=== PATIENT | female | born 1950 | race Caucasian/White ===

== ENCOUNTER 2019-05-16 10:56 | Outpatient (CLI) | payer MEDICARE, SELFPAY ==
--- NOTE | ~2019-05-16 | MR_ITS ---
EXAMINATION: MRA brain wo con DATE: 05/16/2019 11:50 INDICATION: Adult polycystic kidney disease. Frontal headaches. TECHNIQUE: Magnetic resonance imaging (MRI) of the brain and brainstem was performed without intraven ous contrast. Sequences included sagittal and axial T1-weighted SE, axial diffusion-weighted FS SE, a xial T2*-weighted GRE, axial T2-weighted FLAIR Propeller, and axial T2-weighted Propeller. Apparent d iffusion coefficient (ADC) maps were created. COMPARISON: None. FINDINGS: There is a dominant left vertebral artery. The posterior, middle and anterior cerebral cecilio ken are symmetric without evidence for significant stenosis or aneurysm. There is right sphenoid sin usitis. No ventriculomegaly or midline shift. IMPRESSION: 1. No significant intracranial vascular abnormality. No evidence for aneurysm. Reviewed, dictated and finalized at location A. TIVE ASSISTANT
== END 2019-05-16 10:57 | disposition home or self-care (01) ==
PROVIDERS: Visit Provider Internal Medicine Nephrology
DX: Q61.2 Polycystic kidney, adult type (principal); R51 Headache
CPT/HCPCS: 70544

== ENCOUNTER 2019-08-04 12:08 | Emergency (ER) | payer MEDICARE, SELFPAY ==
--- NOTE | ~2019-08-04 | CT_ITS ---
EXAMINATION: CT brain wo con DATE: 08/04/2019 13:53 INDICATION: Headache. TECHNIQUE: Computed tomography (CT) of the head was performed without intravenous contrast. The mA wa s adjusted according to patient size. Iterative reconstruction technique was employed. The dose-lengt h product was 605.33 mGy-cm. COMPARISON: Head CT 06/24/2015 FINDINGS: There are scattered areas of low attenuation in the cerebral white matter. There is no intr acranial hemorrhage, acute infarction, or abnormal intracranial mass lesion. The ventricles are haley l in size. There is mucosal thickening in right sphenoid sinus with thickening and sclerosis of the s inus lewis, consistent with chronic sinusitis. There are likely changes of ocular lens replacement geiger rgeries. The mastoid air cells are normal. IMPRESSION: 1. Stable moderate nonspecific cerebral white matter disease, which likely represents chronic small v essel ischemic disease. 2. Chronic sinusitis. Reviewed, dictated and finalized at location A. IMPRESSION: 1. Stable moderate nonspecific cerebral white matter disease, which likely repr esents chronic small vessel ischemic disease. 2. Chronic sinusitis.
--- NOTE | ~2019-08-04 | XR_ITS ---
EXAMINATION: XR chest 2V DATE: 08/04/2019 12:43 INDICATION: Hypertension. TECHNIQUE: Frontal and lateral views of the chest were obtained. COMPARISON: Chest 2 views 02/21/2016, CT abdomen and pelvis 09/24/2018 FINDINGS: There is mild atelectasis in the lower lung zones. No pleural effusion or pneumothorax. The heart size is normal. Surgical clips in the right upper quadrant are likely from cholecystectomy. IMPRESSION: 1. Mild atelectasis in the lower lung zones. Reviewed, dictated and finalized at location A.
[2019-08-04 12:14] VITALS: BP 192/101; PULSE 63; RESP 20; TEMP 36.7; O2SAT 97
--- NOTE | 2019-08-04 12:23 | ECG_ITS ---
Measurements Intervals [place] Rate: 60 P: 45 MI: 189 QRS: -32 QRSD: 97 T: 52 QT: 453 QTc: 453 Interpretive Statements SINUS RHYTHM LEFT AXIS DEVIATION POOR R WAVE PROGRESSION, ANTERIOR LEADS BORDERLINE T WAVE ABNORMALITY- DIFFUSE LEADS BASELINE ARTIFACT- I, II, AVR, AVL, AVF ABNORMAL ECG Electronically Signed On 08-04-2019 14:27:39 CDT by Ross Villalta D.O.
[2019-08-04 12:34] LABS: Hematocrit 43.7 % (37.0-47.0); Hemoglobin 14.5 g/dL (12.0-15.0); Lymphocytes Absolute Auto 1.19 K/mm3 (0.9-3.2); Lymphocytes Percent Auto 40.6 % (18.3-44.2); Mean Corpuscular HGB Conc 33.2 g/dl (32-36); Mean Corpuscular Hemoglobin 29.5 pg (26-34); Mean Platelet Volume 10.7 fl (7.4-10.4); Monocytes Absolute Auto 0.4 K/mm3 (0.1-0.6); Monocytes Percent Auto 12.3 % (2.6-8.5); Neutrophils Absolute Auto 1.4 K/mm3 (1.3-6.7); Neutrophils Percent Auto 46.1 % (45.5-73.1); Platelet Count Result 238 k/mm3 (150-375); Red Blood Count 4.91 M/mm3 (4.2-5.4); White Blood Count 2.9 K/mm3 (4.5-10.0)
[2019-08-04 12:43] LABS: INR 0.8; Prothrombin Time 11.2 Seconds (11.1-14.7)
[2019-08-04 12:44] LABS: Partial Thromboplastin Time 30.8 SECONDS (22.3-36.8)
[2019-08-04 12:45] LABS: Blood Urea Nitrogen 23 mg/dL (7-17); Calcium 8.7 mg/dL (8.4-10.2); Carbon Dioxide 27 mmol/L (22-30); Chloride 109 mmol/L (98-107); Estimated Glomerular Filt Rate 30; Glucose 90 mg/dL (65-105); Sodium 141 mmol/L (137-145)
[2019-08-04 12:56] VITALS: BP 159/76; PULSE 60; RESP 20; O2SAT 99
[2019-08-04 12:59] LABS: Troponin I < 0.012 ng/mL (0.000-0.034)
[2019-08-04 14:31] VITALS: BP 173/89; PULSE 58; RESP 20; O2SAT 97
--- NOTE | 2019-08-04 14:47 | ED.RECABL ---
HPI - Recheck/Abnormal Lab/Rx General Chief Complaint: Recheck/Abnormal Lab/Rx <Helene Dimas PA-C - Last Filed: 08/04/19 14:59> Stated Complaint: ELEVATED BP <Helene Dimas PA-C - Last Filed: 08/04/19 14:59> Time Seen by Provider: 08/04/19 13:07 <VENESSA Elise Last Filed: 08/04/19 14:59> Source: patient <VENESSA Elise Last Filed: 08/04/19 14:59> Mode of arrival: ambulatory <VENESSA Elise Last Filed: 08/04/19 14:59> Limitations: no limitations <Helene Dimas PA-C - Last Filed: 08/04/19 14:59> History of Present Illness HPI narrative: This is a 68 year old female that presents to the ER for elevated blood pressure x 2 weeks. Reports she has been trying to get her blood pressure under control through her usps letter carrier who had been adjusting her hypertension medications. Reports she has been getting headaches intermittently over the last couple of days. Also reports yesterday that she had some chest tightness while laying down that lasted briefly and resolved on its own. Currently denies any chest pain. Denies fever, shortness of breath, vision changes, vomiting, numbness or weakness. <Helene Dimas PA-C - Last Filed: 08/04/19 14:59> Related Data Home Medications: Home Medications Medication Instructions Recorded Confirmed allopurinol 08/04/19 08/04/19 escitalopram oxalate mg 08/04/19 hydralazine 08/04/19 hydrochlorothiazide 08/04/19 irbesartan mg 08/04/19 losartan 08/04/19 08/04/19 potassium chloride [Klor-Con M20] meq PO 08/04/19 tolvaptan [Jynarque] ea 08/04/19 <VENESSA Elise Last Filed: 08/04/19 14:59> Allergies/Adverse Reactions: Allergies Allergy/AdvReac Type Severity Reaction Status Date / Time quinidine Allergy Severe QUINAGLUTE Verified 08/04/19 12:25 FORTE CAUSED SEVERE RASH MEPERIDINE HCL AdvReac Intermediate DIAPHORESIS, Uncoded 08/04/19 12:25 DIZZY, <Helene Dimas PA-C - Last Filed: 08/04/19 14:59> Review of Systems Review of Systems: Narrative: CONSTITUTIONAL: Denies fever CARDIOVASCULAR: Denies chest pain RESPIRATORY: Denies dyspnea. GASTROINTESTINAL: Denies vomiting NEUROLOGIC: Reports headache. Denies numbness, or weakness. <Helene Dimas PA-C - Last Filed: 08/04/19 14:59> All systems reviewed & are unremarkable except as noted in HPI and below <Helene Dimas PA-C - Last Filed: 08/04/19 14:59> PMFSH Past Medical History Medical History: Medical History (Updated 08/04/19 @ 14:59 by Helene Dimas PA-C) History of hypertension History of polycystic kidney disease <Helene Dimas PA-C - Last Filed: 08/04/19 14:59> Surgical History Surgical History: Surgical History (Updated 08/04/19 @ 14:53 by Helene Dimas PA-C) History of appendectomy History of cholecystectomy History of hysterectomy History of tonsillectomy <Helene Dimas PA-C - Last Filed: 08/04/19 14:59> Exam Narrative: Exam Narrative: GENERAL: Well-appearing, well-nourished, and in no acute distress. HEAD: Normocephalic, atraumatic. EYES: PERRLA and EOMI. ENT: Nares clear, no rhinorrhea or epistaxis. Mucous membranes moist. Oropharynx without tonsillar hypertrophy exudate or other lesions. Bilateral TMs pearly frausto non-bulging NECK: Supple. No adenopathy or masses. No carotid bruits or JVD CHEST: Clear to auscultation. No respiratory distress. No wheezes rales or rhonchi HEART: Regular rate and rhythm. No murmur heard. Normal peripheral pulses. EXTREMITIES: Normal range of motion. No edema. Strength equal in bilateral upper and lower extremities. Normal [id number] SKIN: Warm, dry, no rash. NEURO: No focal deficits. Alert and oriented x3. Cranial nerves II through XII grossly intact. Normal gait PSYCH: Normal mood and affect <Helene Dimas PA-C - Last Filed: 08/04/19 14:59> Course Vital Signs Vital signs: Vital Signs Temperature 98.0 F
[2019-08-04 15:05] VITALS: BP 176/83; PULSE 58; RESP 20; TEMP 36.7; O2SAT 98
== END 2019-08-04 15:07 | disposition home or self-care (01) ==
PROVIDERS: Emergency Provider Emergency Medicine; PCP Family Medicine
DX: I15.1 Hypertension secondary to other renal disorders (principal); R51 Headache; Q61.3 Polycystic kidney, unspecified; R90.82 White matter disease, unspecified; R94.31 Abnormal electrocardiogram [ECG] [EKG]
CPT/HCPCS: 36415; 70450; 71046; 80048; 84484; 85025; 85610; 85730; 93005; 96374; 99284; J0131

== ENCOUNTER 2019-08-05 19:03 | Emergency (ER) | payer MEDICARE, SELFPAY ==
[2019-08-05 19:10] VITALS: BP 195/87; PULSE 68; RESP 17; TEMP 36.7; O2SAT 96
[2019-08-05 19:18] VITALS: RESP 15; O2SAT 97
[2019-08-05 19:22] VITALS: BP 169/85; PULSE 63; RESP 13; O2SAT 99
--- NOTE | 2019-08-05 19:45 | ECG_ITS ---
Measurements Intervals [place] Rate: 63 P: 42 [place]: 182 QRS: -34 QRSD: 96 T: 21 QT: 436 QTc: 450 Interpretive Statements SINUS RHYTHM LEFT AXIS DEVIATION BORDERLINE R WAVE PROGRESSION, ANTERIOR LEADS BASELINE WANDER- I, II, AVR, AVL, AVF, V1-V3 BORDERLINE ECG Electronically Signed On 08-05-2019 19:48:05 CDT by Ross Villalta D.O.
--- NOTE | 2019-08-05 19:58 | ED.RECABL ---
HPI - Recheck/Abnormal Lab/Rx General Chief Complaint: Recheck/Abnormal Lab/Rx Stated Complaint: syncope Time Seen by Provider: 08/05/19 19:47 History of Present Illness HPI narrative: Patient presents with her for having passed out at home tonight. She was getting up from the bed when she felt lightheaded and slipped down onto her left knee and left shoulder. She was unconscious for a very short period of time. Her found her, and checked her pressure which was like 229/110. She is on a new experimental drug for her polycystic kidneys, and had to come off of her diltiazem. Metoprolol did not work, Dr. Melton added hydralazine and hydrochlorothiazide. She does not smoke drink or do drugs. She has not been sick in the last couple weeks. She does have intermittent nausea. She makes more urine than ever on the new experimental drug. She has mild pain in her left knee and left shoulder but is not concerned. She wants a full liver panel and does not want the CAT scan of the chest x-ray because she had those last night. Initial visit (ago): hour(s) Related Data Home Medications Medication Instructions Recorded Confirmed allopurinol 08/04/19 08/04/19 escitalopram oxalate mg 08/04/19 hydralazine 08/04/19 hydrochlorothiazide 08/04/19 irbesartan mg 08/04/19 losartan 08/04/19 08/04/19 potassium chloride [Klor-Con M20] meq PO 08/04/19 tolvaptan [Jynarque] ea 08/04/19 Allergies Allergy/AdvReac Type Severity Reaction Status Date / Time quinidine Allergy Severe QUINAGLUTE Verified 08/04/19 12:25 FORTE CAUSED SEVERE RASH MEPERIDINE HCL AdvReac Intermediate DIAPHORESIS, Uncoded 08/04/19 12:25 DIZZY, Review of Systems Review of Systems: Narrative: CONSTITUTIONAL: Denies fever, chills, or sweats. EYES: Denies visual changes, redness, or discharge. ENT: Denies rhinorrhea, congestion, sore throat, or otalgia. CARDIOVASCULAR: Denies chest pain, palpitations, or edema. She did get dizzy and faint. RESPIRATORY: Denies cough or dyspnea. GASTROINTESTINAL: Denies abdominal pain, nausea, vomiting, or diarrhea. GENITOURINARY: Denies dysuria or hematuria. SKIN: Denies rash or itching. MUSCULOSKELETAL: Denies back pain, joint pain, or myalgia. NEUROLOGIC: Denies headache, numbness, or weakness. PSYCHIATRIC: Denies anxiety or depression. [facility] Past Medical History Medical History History of hypertension History of polycystic kidney disease Surgical History Surgical History History of appendectomy History of cholecystectomy History of hysterectomy History of tonsillectomy Social History Social History (Updated 08/05/19 @ 20:01 by Sintia Prabhakar MD) Smoking status: Never smoker Alcohol intake: never Substance use: never Exam Narrative: Exam Narrative: GENERAL: Well-appearing, well-nourished, and in no acute distress.Overweight HEAD: Normocephalic, atraumatic. EYES: PERRLA and EOMI. ENT: Nares clear, no rhinorrhea or epistaxis. Mucous membranes moist. NECK: Supple. CHEST: Clear to auscultation. No respiratory distress. HEART: Regular rate and rhythm. No murmur heard. Normal peripheral pulses. ABDOMEN: Soft, nontender, nondistended, normal active bowel sounds. EXTREMITIES: Normal range of motion. Mild edema. No bruises or deformity left shoulder and left knee. SKIN: Warm, dry, no rash. NEURO: No focal deficits. Alert and oriented x3. PSYCH: Flat affect and worried. Course Reevaluation(s) Reevaluation #1: Told the patient and her about the lab results. She is very worried and does not want to have the swings in her blood pressure. I will call her shopping investigator to get advice. Date: 08/05/19 Time: 22:17 Consultations Consultation #1: Called the on-call shopping investigator at [phone], to get advice about Mrs. Sanchez's blood pressure. Dr. Esteban recommends that she call Dr. Rajan
[2019-08-05 20:09] LABS: Basophils Percent Auto 1.4 % (0.2-1.2); Hematocrit 41.5 % (37.0-47.0); Hemoglobin 13.5 g/dL (12.0-15.0); Immature Granulocyte Absolute 0.01 K/mm3 (0.00-0.031); Immature Granulocyte Percent A 0.4 % (0-0.5); Lymphocytes Absolute Auto 1.35 K/mm3 (0.9-3.2); Lymphocytes Percent Auto 47.7 % (18.3-44.2); Mean Corpuscular HGB Conc 32.5 g/dl (32-36); Mean Corpuscular Hemoglobin 28.8 pg (26-34); Mean Corpuscular Volume 88.5 fl (80-100); Mean Platelet Volume 10.4 fl (7.4-10.4); Monocytes Absolute Auto 0.4 K/mm3 (0.1-0.6); Monocytes Percent Auto 12.7 % (2.6-8.5); Neutrophils Absolute Auto 1.1 K/mm3 (1.3-6.7); Neutrophils Percent Auto 37.8 % (45.5-73.1); Platelet Count Result 209 k/mm3 (150-375); Red Blood Count 4.69 M/mm3 (4.2-5.4); Red Cell Distribution Width 14.9 % (11.5-14.5); White Blood Count 2.8 K/mm3 (4.5-10.0)
[2019-08-05 20:20] LABS: Ethanol < 10 mg/dL (<10)
[2019-08-05 20:22] LABS: Alanine Aminotransferase 13 U/L (4-35); Albumin Level 3.7 g/dL (3.5-5.1); Alkaline Phosphatase 87 U/L (38-126); Aspartate Amino Transferase 24 U/L (14-36); Bilirubin,Total 0.4 mg/dL (0.2-1.3); Blood Urea Nitrogen 22 mg/dL (7-17); Calcium 8.6 mg/dL (8.4-10.2); Carbon Dioxide 27 mmol/L (22-30); Chloride 107 mmol/L (98-107); Estimated CRCL calculation 26 ml/min; Estimated Glomerular Filt Rate 26; Glucose 89 mg/dL (65-105); Sodium 139 mmol/L (137-145)
[2019-08-05 20:28] VITALS: BP 161/92; PULSE 76; RESP 11; O2SAT 99
[2019-08-05 20:30] LABS: Add Urine Microscopic? YES; Appearance Urine Clear (Clear); Bacteria Urine Trace /hpf; Bilirubin Urine Negative (Negative); Blood Urine Negative (Negative); Color Urine Straw (Yellow); Glucose Urine UA Negative (Negative); Ketones Urine Negative (Negative); Leukocyte Esterase Ur Trace LEU/UL (Negative); Nitrate Urine Negative (Negative); Protein Urine 2+ mg/dL (Negative); Squamous Epithelial Cell Urine Many /hpf (Few); Urobilinogen Urine Negative mg/dL (<2.0)
[2019-08-05 20:33] LABS: NT Pro B Type Natriuretic Pept 527 PG/ML (5-100); Troponin I < 0.012 ng/mL (0.000-0.034)
[2019-08-05 21:09] VITALS: BP 155/99; PULSE 75; RESP 15; O2SAT 100
[2019-08-05 22:47] VITALS: BP 149/82; PULSE 70; RESP 16; TEMP 36.5; O2SAT 99
== END 2019-08-05 22:55 | disposition home or self-care (01) ==
PROVIDERS: Emergency Provider Emergency Medicine; PCP Family Medicine
DX: R55 Syncope and collapse (principal); I11.0 Hypertensive heart disease with heart failure; Q61.3 Polycystic kidney, unspecified; I50.9 Heart failure, unspecified; D72.819 Decreased white blood cell count, unspecified; R94.31 Abnormal electrocardiogram [ECG] [EKG]
CPT/HCPCS: 36415; 80053; 80307; 81001; 83880; 84484; 85025; 93005; 99284

== ENCOUNTER 2020-06-01 16:05 | Emergency (ER) | payer MEDICARE, SELFPAY ==
--- NOTE | ~2020-06-01 | XR_ITS ---
EXAMINATION: XR chest 2V 06/01/2020 16:56 INDICATION: Mediastinal chest pain. Hypertension. PROCEDURE: 2 view chest COMPARISON: Comparison to multiple prior studies sequentially, with oldest reviewed study dated 11/18. FINDINGS: There is left basilar atelectasis. No focal pneumonia or edema. The cardiomediastinal silho uette is within normal limits. There are no pleural effusions. There is no pneumothorax suspected. IMPRESSION: 1: Left basilar atelectasis. Reviewed, dictated and finalized at location A. R UN[employer] BUSINESS REPRESENTATIVE
[2020-06-01 16:13] VITALS: BP 165/86; PULSE 59; RESP 14; TEMP 36.9; O2SAT 99
--- NOTE | 2020-06-01 16:13 | ECG_ITS ---
Measurements Intervals [place] Rate: 58 P: 17 ND: 203 QRS: -31 QRSD: 94 T: 16 QT: 445 QTc: 440 Interpretive Statements SINUS BRADYCARDIA ATRIAL PREMATURE COMPLEX LEFT AXIS DEVIATION BORDERLINE AV CONDUCTION DELAY POOR R WAVE PROGRESSION, ANTERIOR LEADS BORDERLINE T WAVE ABNORMALITY- ANT/INF LEADS BORDERLINE ECG Electronically Signed On 06-01-2020 18:14:34 DIE TROUBLE SHOOTER by Ross Villalta D.O.
[2020-06-01 16:28] LABS: Basophils Absolute Auto 0.1 K/mm3 (0.0-0.1); Eosinophils Absolute Auto 0.3 K/mm3 (0-0.3); Eosinophils Percent Auto 4.7 % (0-4.4); Hematocrit 39.6 % (37.0-47.0); Hemoglobin 12.8 g/dL (12.0-15.0); Immature Granulocyte Absolute 0.01 K/mm3 (0.00-0.031); Immature Granulocyte Percent A 0.2 % (0-0.5); Lymphocytes Percent Auto 28.7 % (18.3-44.2); Mean Corpuscular HGB Conc 32.3 g/dl (32-36); Mean Corpuscular Hemoglobin 29.2 pg (26-34); Mean Corpuscular Volume 90.4 fl (80-100); Mean Platelet Volume 10.6 fl (7.4-10.4); Monocytes Absolute Auto 0.5 K/mm3 (0.1-0.6); Monocytes Percent Auto 7.9 % (2.6-8.5); Neutrophils Absolute Auto 3.4 K/mm3 (1.3-6.7); Neutrophils Percent Auto 57.5 % (45.5-73.1); Platelet Count Result 193 k/mm3 (150-375); Red Blood Count 4.38 M/mm3 (4.2-5.4); Red Cell Distribution Width 14.8 % (11.5-14.5); White Blood Count 5.9 K/mm3 (4.5-10.0)
[2020-06-01 16:40] LABS: Anion Gap 8 mmol/L (8-16); Blood Urea Nitrogen 36 mg/dL (7-17); Calcium 8.7 mg/dL (8.4-10.2); Carbon Dioxide 27 mmol/L (22-30); Chloride 106 mmol/L (98-107); Estimated CRCL calculation 23 ml/min; Estimated Glomerular Filt Rate 26; Glucose 73 mg/dL (65-105); Potassium 3.8 mmol/L (3.4-5.0); Sodium 141 mmol/L (137-145)
[2020-06-01 16:41] LABS: INR 0.9; Prothrombin Time 12.6 Seconds (11.1-14.7)
[2020-06-01 16:42] LABS: Partial Thromboplastin Time 27.7 SECONDS (22.3-36.8)
[2020-06-01 16:52] LABS: Troponin I < 0.012 ng/mL (0.000-0.034)
--- NOTE | 2020-06-01 17:13 | ED.CHESTPAIN ---
HPI - Chest Pain General Chief Complaint: Chest Pain Stated Complaint: chest pain Time Seen by Provider: 06/01/20 16:15 History of Present Illness HPI narrative: Patient is a 69-year-old female who presents ER with some concerns for chest pain. Reports over the last 3 days she been having some burning discomfort in her throat and upper chest. No radiation. Today she started having some aching in her left arm which made her decide she should come in. Aching in the arm began this morning around 11 AM. No exertional chest pain or worsening of her symptoms. No nausea/vomiting/dizziness/shortness of breath. No previous history of ME. She does have history of polycystic kidney disease. She reports significant family history for Stark's esophagus and a sister and another family member who had esophageal cancer. Related Data Home Medications Medication Instructions Recorded Confirmed allopurinol 08/04/19 08/04/19 hydralazine 08/04/19 hydrochlorothiazide 08/04/19 irbesartan mg 08/04/19 tolvaptan (polycys kidney dis) ea 08/04/19 [Jynarque] aspirin [Baby Aspirin] 81 mg PO DAILY 06/01/20 Allergies Allergy/AdvReac Type Severity Reaction Status Date / Time quinidine Allergy Severe QUINAGLUTE Verified 08/04/19 12:25 FORTE CAUSED SEVERE RASH MEPERIDINE HCL AdvReac Intermediate DIAPHORESIS, Uncoded 08/04/19 12:25 DIZZY, Review of Systems Review of Systems: All systems reviewed & are unremarkable except as noted in HPI and below Constitutional: Constitutional: Denies chills, Denies fever(s) and Denies weakness ENT: Denies nasal congestion and Denies sore throat Cardiovascular: Cardiovascular: Reports chest pain, Denies rapid heart rate and Denies radiating jaw, neck or arm pain Respiratory: Respiratory: Denies cough, Denies dyspnea and Denies wheezing Gastrointestinal: Gastrointestinal: Denies abdominal pain, Reports heartburn, Denies diarrhea, Denies nausea and Denies vomiting PMF Past Medical History Medical History (Updated 06/01/20 @ 18:39 by Donte Valentin MD) History of hypertension History of polycystic kidney disease Surgical History Surgical History History of appendectomy History of cholecystectomy History of hysterectomy History of tonsillectomy Social History Social History (Updated 08/05/19 @ 20:01 by Sintia Prabhakar MD) Smoking status: Never smoker Alcohol intake: never Substance use: never Exam Narrative: Exam Narrative: GENERAL: Well-appearing, well-nourished, and in no acute distress. HEAD: Normocephalic, atraumatic. CHEST: Clear to auscultation. No respiratory distress. HEART: Regular rate and rhythm. Normal peripheral pulses. ABDOMEN: Soft, nontender, nondistended. Back: Midline tenderness of thoracic lumbar spine but there is left-sided paraspinal tenderness at the rhomboid. EXTREMITIES: Normal range of motion. No edema. SKIN: Warm, dry, no rash. NEURO: Alert and oriented x3. PSYCH: Normal mood and affect. Course Course Emergency Course: Will place patient on Protonix to help with potential reflux. Troponin negative despite 3 days of discomfort. Patient has reproducible pain around the left shoulder that could be causing the discomfort in the arm. Recommend close follow-up with her PCP. Significant family history of esophageal issues patient may be experiencing the same. Patient was able to tolerate a small amount of GI cocktail before vomiting and reports it did help the discomfort in her throat. Patient reports she vomited because she has an issue with textures and cannot even drink milkshakes and not because she has an inability to swallow. Vital Signs Vital signs: Vital Signs Temperature 98.4 F 06/01/20 16:13 Pulse Rate 59 L 06/01/20 16:13 Respiratory Rate 14 06/01/20 16:13 Blood Pressure 165/86 H 06/01/20 16:13 Pulse Oximetry 99 06/01/20 16:13 Temperature
[2020-06-01] MEDS: BELLADONNA ALK/PHENOB ELIX 10 ML, MAG HYDROX/ALUMINUM HYD/SIMETH 30 ML, LIDOCAINE HCL 2... PO (18:04)
[2020-06-01 18:28] VITALS: BP 142/73; PULSE 60; RESP 15; O2SAT 98
== END 2020-06-01 18:59 | disposition home or self-care (01) ==
PROVIDERS: Emergency Medicine; Emergency Provider Emergency Medicine; PCP Family Medicine
DX: K21.9 Gastro-esophageal reflux disease without esophagitis (principal); M54.9 Dorsalgia, unspecified; R00.1 Bradycardia, unspecified; I10 Essential (primary) hypertension; Q61.3 Polycystic kidney, unspecified
CPT/HCPCS: 36415; 71046; 80048; 84484; 85025; 85610; 85730; 93005; 99284; A9270

== ENCOUNTER → 2020-06-25 05:35 | Outpatient (CLI) | payer MEDICARE, SELFPAY ==
[2020-06-25 19:34] LABS: SARS-CoV-2 RNA PCR Negative
== END ==
PROVIDERS: PCP Family Medicine; Visit Provider Internal Medicine Gastroenterology
DX: Z01.812 Encounter for preprocedural laboratory examination (principal); Z20.822 Contact with and (suspected) exposure to COVID-19
CPT/HCPCS: C9803; U0003; U0005

== ENCOUNTER 2020-06-29 01:05 | Day surgery (SDC) | payer MEDICARE, SELFPAY ==
[2020-06-16 12:08] VITALS: BMI 29.0
[2020-06-29 07:35] VITALS: BP 140/69; PULSE 57; RESP 16; TEMP 36.3; O2SAT 100; BMI 29.2
[2020-06-29] MEDS: LACTATED RINGERS 1,000 ML 150 ML IV CONT (07:51)
--- NOTE | 2020-06-29 07:56 | WPDANESEPPF ---
Anes - Initial Pre Proc Eval Procedure: Operation Date: 06/29/20 08:30 Proposed Procedures p Esophagogastroduodenoscopy - Adrián Giron MD Date/Time: 06/29/20 07:56 Surgeon: Adrián Giron MD Pre Op Diagnosis: atypical chest pain Patient Data Age: 69 Gender: F Height: 5 ft 2 in Weight: 72.6 kg Last Vital Signs Temp 97.3 F L 06/29/20 07:35 Pulse 57 L 06/29/20 07:35 Resp 16 06/29/20 07:35 BP 140/69 06/29/20 07:35 Pulse Ox 100 06/29/20 07:35 Allergies Allergy/AdvReac Type Severity Reaction Status Date / Time quinidine Allergy Severe QUINAGLUTE Verified 06/29/20 07:34 FORTE CAUSED SEVERE RASH meperidine AdvReac Intermediate Dizziness Verified 06/29/20 07:34 Home Medications Medication Instructions Recorded Confirmed Type allopurinol 300 mg PO DAILY 08/04/19 06/29/20 History hydralazine 10 mg PO BID 08/04/19 06/29/20 History hydrochlorothiazide 12.5 mg PO DAILY 08/04/19 06/29/20 History irbesartan 300 mg PO DAILY 08/04/19 06/29/20 History aspirin [Baby Aspirin] 81 mg PO DAILY 06/01/20 06/29/20 History pantoprazole 40 mg PO BID #28 tablet 06/01/20 06/29/20 Rx escitalopram oxalate 20 mg PO DAILY 06/16/20 06/29/20 History tolvaptan (polycys kidney dis) 1 ea PO DAILY 06/16/20 06/29/20 History [Jynarque] Patient hx anesthesia problems: none Family hx anesthesia problems: none PMFSH Past Medical History Medical History (Updated 06/02/20 @ 00:00 by Background Daidalia) History of hypertension History of polycystic kidney disease Surgical History Surgical History History of appendectomy History of cholecystectomy History of hysterectomy History of tonsillectomy Social History Social History (Updated 08/05/19 @ 20:01 by Sintia Prabhakar MD) Smoking status: Never smoker Alcohol intake: never Substance use: never Substance use type: does not use Living arrangements: with family Spiritual care concerns: No Anes - Eval Final PreProcedure Day of Procedure 06/29/20 07:56 Patient weight: overweight Heart: regular rate and rhythm Lungs: clear to auscultation Airway: Mallampati scale class II Neurological: alert and oriented Last oral intake: >/= 8 hours ASA classification: III Emergent: no Anesthetic plan: proceed Anesthesia type and monitoring: general GIVS and standard monitoring Informed Consent: The patient's anesthetic plan and its attendant risks and benefits were discussed with the patient/family/POA. Questions were solicited and answers provided to the satisfaction of the patient/family/POA.
--- NOTE | 2020-06-29 08:06 | PM.HPGS ---
History of Present Illness History of Present Illness Consent: Risks, benefits, and alternatives have been discussed and questions answered. Patient agrees to proceed with procedure. Chief complaint: atypical chest pain Narrative: Aurora Sanchez is a 69 year old female who has had severe heartburn recently. A few weeks ago she had burning pain in the chest that began at night but lasted for couple of days. Cardiac evaluation in the emergency room was negative. She was started on pantoprazole and has not had any recurrences since. her family history is significant in that an uncle had esophageal cancer and a sister has Stark's esophagus. She denies dysphagia Review of Systems Review of Systems: All systems reviewed & are unremarkable except as noted in HPI and below PMFSH Past Medical History Medical History History of hypertension History of polycystic kidney disease Surgical History Surgical History History of appendectomy History of cholecystectomy History of hysterectomy History of tonsillectomy Social History Social History Smoking status: Never smoker Alcohol intake: never Substance use: never Substance use type: does not use Living arrangements: with family Spiritual care concerns: No Meds Home Medications and Allergies Home Medications Medication Instructions Recorded Confirmed Type allopurinol 300 mg PO DAILY 08/04/19 06/29/20 History hydralazine 10 mg PO BID 08/04/19 06/29/20 History hydrochlorothiazide 12.5 mg PO DAILY 08/04/19 06/29/20 History irbesartan 300 mg PO DAILY 08/04/19 06/29/20 History aspirin [Baby Aspirin] 81 mg PO DAILY 06/01/20 06/29/20 History pantoprazole 40 mg PO BID #28 tablet 06/01/20 06/29/20 Rx escitalopram oxalate 20 mg PO DAILY 06/16/20 06/29/20 History tolvaptan (polycys kidney dis) 1 ea PO DAILY 06/16/20 06/29/20 History [Jynarque] Allergies Allergy/AdvReac Type Severity Reaction Status Date / Time quinidine Allergy Severe QUINAGLUTE Verified 06/29/20 07:34 FORTE CAUSED SEVERE RASH meperidine AdvReac Intermediate Dizziness Verified 06/29/20 07:34 Vital Signs Vital Signs - 24 hr 06/29/20 07:35 Temperature 36.3 C L Pulse Rate 57 L Respiratory Rate 16 Blood Pressure 140/69 Pulse Oximetry 100 Exam Const: General: alert Orientation/consciousness: patient oriented x3 Resp: Auscultation: clear to auscultation bilaterally Cardio: Rhythm: regular rhythm GI: GI Palp: Yes Soft to palpation and No Tenderness to palpation present (GI) Neuro: General: patient oriented x3 Assessment and Plan Assessment and plan (1) GERD (gastroesophageal reflux disease): Code(s): K21.9 - Gastro-esophageal reflux disease without esophagitis Status: Acute Assessment and Plan: EGD with possible biopsy or dilatation or cautery.
[2020-06-29 08:43] VITALS: BP 122/70; PULSE 56; RESP 17; O2SAT 96
[2020-06-29 08:53] VITALS: BP 130/76; PULSE 54; RESP 17; O2SAT 98
[2020-06-29 09:08] VITALS: BP 134/74; PULSE 52; RESP 17; O2SAT 98
== END 2020-06-29 09:19 | disposition home or self-care (01) ==
PROVIDERS: PCP Family Medicine; Visit Provider Internal Medicine Gastroenterology
PROC: 0DJ08ZZ Inspection of Upper Intestinal Tract, Via Natural or Artificial Opening Endoscopic (ICD-10-PCS; CPT 43235; principal; 2020-06-29 08:30)
DX: K21.9 Gastro-esophageal reflux disease without esophagitis (principal); K25.9 Gastric ulcer, unspecified as acute or chronic, without hemorrhage or perforation; K44.9 Diaphragmatic hernia without obstruction or gangrene; R07.89 Other chest pain; I10 Essential (primary) hypertension; Q61.3 Polycystic kidney, unspecified; Z79.82 Long term (current) use of aspirin
CPT/HCPCS: 43239; 87081; 88305; C9803; J2704; J7120; U0003; U0005

== ENCOUNTER 2020-08-18 19:25 | Emergency (ER) | payer MEDICARE, SELFPAY ==
[2020-08-18 19:29] VITALS: BP 121/64; PULSE 66; RESP 18; TEMP 36.4; O2SAT 100
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
[2020-08-18 20:57] LABS: Basophils Percent Auto 0.5 % (0.2-1.2); Eosinophils Absolute Auto 0.1 K/mm3 (0-0.3); Eosinophils Percent Auto 3.1 % (0-4.4); Hematocrit 36.3 % (37.0-47.0); Hemoglobin 11.7 g/dL (12.0-15.0); Lymphocytes Absolute Auto 1.15 K/mm3 (0.9-3.2); Lymphocytes Percent Auto 27.8 % (18.3-44.2); Mean Corpuscular HGB Conc 32.2 g/dl (32-36); Mean Corpuscular Hemoglobin 28.8 pg (26-34); Mean Corpuscular Volume 89.4 fl (80-100); Mean Platelet Volume 10.8 fl (7.4-10.4); Monocytes Absolute Auto 0.7 K/mm3 (0.1-0.6); Monocytes Percent Auto 15.7 % (2.6-8.5); Neutrophils Absolute Auto 2.2 K/mm3 (1.3-6.7); Neutrophils Percent Auto 52.9 % (45.5-73.1); Platelet Count Result 161 k/mm3 (150-375); Red Blood Count 4.06 M/mm3 (4.2-5.4); Red Cell Distribution Width 14.4 % (11.5-14.5); White Blood Count 4.1 K/mm3 (4.5-10.0)
[2020-08-18 21:08] LABS: Acetaminophen < 10 ug/mL (10-30); Alanine Aminotransferase 8 U/L (4-35); Albumin Level 3.3 g/dL (3.5-5.1); Alkaline Phosphatase 64 U/L (38-126); Anion Gap 7 mmol/L (8-16); Aspartate Amino Transferase 21 U/L (14-36); Bilirubin,Total 0.6 mg/dL (0.2-1.3); Blood Urea Nitrogen 40 mg/dL (7-17); Calcium 8.5 mg/dL (8.4-10.2); Carbon Dioxide 27 mmol/L (22-30); Chloride 108 mmol/L (98-107); Estimated Glomerular Filt Rate 21; Ethanol < 10 mg/dL (<10); Glucose 96 mg/dL (65-105); Potassium 3.1 mmol/L (3.4-5.0); Salicylate < 1.0 mg/dL (2-20); Sodium 142 mmol/L (137-145)
--- NOTE | 2020-08-18 21:18 | PC.NURSE ---
per erp dr araujo pt is medically clear
[2020-08-18] MEDS: POTASSIUM CHLORIDE 20 MEQ PACKET (FOR LIQUID) PO (21:21)
--- NOTE | 2020-08-18 21:21 | PC.NURSE ---
This rn spoke with crisis. They will send someone out in the next hour.
[2020-08-18 21:49] LABS: Add Urine Microscopic? YES; Appearance Urine Clear (Clear); Bilirubin Urine Negative (Negative); Blood Urine 1+ (Negative); Color Urine Yellow (Yellow); Glucose Urine UA Negative (Negative); Ketones Urine Negative (Negative); Leukocyte Esterase Ur 3+ LEU/UL (Negative); Mucus Urine Rare /lpf; Nitrate Urine Negative (Negative); Protein Urine 1+ mg/dL (Negative); Specific Grav Ur 1.013 (1.001-1.035); Squamous Epithelial Cell Urine Few /hpf (Few); Transitional Epi Cells Urine Rare /hpf (None Seen); Urobilinogen Urine Negative mg/dL (<2.0); WBC Urine 51-75 /hpf
[2020-08-18 22:04] LABS: Amphetamine Screen Urine Negative (Negative); Barbiturate Screen Urine Negative (Negative); Benzodiazepines Screen Urine Negative (Negative); Cannabinoid Screen Urine Negative (Negative); Cocaine Screen Urine Negative (Negative); Methadone Screen Urine Negative (Negative); Opiate Screen Urine Negative (Negative); Phencyclidine Screen Urine Negative (Negative)
[2020-08-19 00:14] VITALS: BP 124/67; PULSE 64; RESP 16; TEMP 36.3; O2SAT 98
== END 2020-08-19 00:15 | disposition home or self-care (01) ==
PROVIDERS: Emergency Provider Emergency Medicine; PCP Family Medicine
DX: F32.9 Major depressive disorder, single episode, unspecified (principal); E87.6 Hypokalemia; Q61.3 Polycystic kidney, unspecified; I12.9 Hypertensive chronic kidney disease with stage 1 through stage 4 chronic kidney disease, or unspecified chronic kidney disease; N18.9 Chronic kidney disease, unspecified; Z79.82 Long term (current) use of aspirin; Z79.899 Other long term (current) drug therapy
CPT/HCPCS: 36415; 80053; 80307; 81001; 84443; 85025; 87086; 87088; 99284; A9270

== ENCOUNTER 2021-04-20 08:38 | Emergency (ER) | payer MEDICARE, SELFPAY ==
[2021-04-20] VITALS (11 sets, daily range): BP systolic 107–146; BP diastolic 64–75; PULSE 52–58; RESP 14–20; TEMP 36.6; O2SAT 94–96
--- NOTE | ~2021-04-20 | CT_ITS ---
EXAMINATION: CT abdomen pelvis wo con DATE: 04/20/2021 09:33 INDICATION: Right lower quadrant abdominal pain. Polycystic kidney disease. TECHNIQUE: Computed tomography (CT) of the abdomen and pelvis was performed without intravenous contr ast. Automated exposure control and iterative reconstruction technique were employed. The dose-length product was 588.38 mGy-cm. COMPARISON: CT abdomen and pelvis 09/24/2018 FINDINGS: The visualized portions of the lung bases demonstrate mild atelectasis. The heart size is n ormal. There are coronary artery calcifications. There is a small pericardial effusion. There are inn umerable cysts in the liver. There are changes of cholecystectomy. The pancreas and spleen and adrena l glands are normal. There are innumerable cysts in the kidneys measuring up to 9.8 cm on the left. T here are parenchymal calcifications in the kidneys. There are hemorrhagic cysts in the kidneys measur ing up to 2.5 cm on the right. There is a supraumbilical ventral hernia containing fat. There is dive rticulosis of the colon without evidence of diverticulitis. There are no dilated loops of bowel. The appendix is not visualized. There are no pathologically enlarged lymph nodes. There is no free intrap eritoneal fluid. There is mild thoracolumbar spondylosis. IMPRESSION: 1. Supraumbilical ventral hernia containing fat. 2. Polycystic kidney disease. 3. Small pericardial effusion, new from 09/24/2018. Reviewed, dictated and finalized at location A. [employer]
--- NOTE | ~2021-04-20 | XR_ITS ---
XR lumbar spine min 4V 04/20/2021 09:41 Indication: Low back pain Procedure: 5 views lumbar spine Comparison: No prior studies for comparison. Findings: There is moderate multilevel facet hypertrophy with grade 1 degenerative spondylolisthesis at L4-5. Vertebral body heights are maintained. No significant disc narrowing. Sacral foramen are sym metric. There are cholecystectomy clips. Mild levocurvature of the lumbar spine. Impression: 1: Moderate facet spondylosis with grade 1 degenerative spondylolisthesis at L4-5. Reviewed, dictated and finalized at location B. WORKER Impression: 1: Moderate facet spondylosis with grade 1 degenerative spondylolisthesis at L4 -5.
--- NOTE | ~2021-04-20 | XR_ITS ---
XR chest 2V 04/20/2021 09:41 Indication: Right rib pain after fall Procedure: AP and lateral views of the chest Comparison: Comparison to multiple prior studies sequentially, with oldest reviewed study dated 06/2013. Findings: Heart size is normal. There is bibasilar atelectasis. No focal pneumonia, pleural effusion or edema. No acute osseous abnormality. Impression: 1: Bibasilar atelectasis. Reviewed, dictated and finalized at location B. TITATIVE CONSULTANT Impression: 1: Bibasilar atelectasis.
--- NOTE | ~2021-04-20 | XR_ITS ---
XR foot LT min 3V 04/20/2021 09:42 Indication: Pain in the base of the fifth metatarsal Procedure: 4 views left foot Comparison: No prior studies for comparison. Findings: Osteopenia. There is a healed fracture of the fifth proximal phalanx. Mild polyarticular os teoarthritis. Lisfranc joint intact. There are small degenerative calcaneal enthesophytes. There is m ild diffuse soft tissue swelling. No foreign bodies. Impression: 1: No acute fracture. Reviewed, dictated and finalized at location B. ANT CLERK Impression: 1: No acute fracture.
[2021-04-20] MEDS: HYDROcodone/acetaminophen (*CRX) 7.5-325 MG TABLET 1 TAB PO (09:54)
--- NOTE | 2021-04-20 11:22 | ED.FALL ---
HPI - Fall General Chief Complaint: Abdominal Pain Stated Complaint: right lower abd pain Time Seen by Provider: 04/20/21 08:46 Source: patient Mode of arrival: ambulatory Limitations: no limitations History of Present Illness HPI Narrative: 70-year-old female Presents today because of pains after having a couple falls Patient reports that the first time she fell she twisted her left foot and ankle and initially was nearly unable to bear weight This subsequently did improve some and she was able to ambulate gingerly Then yesterday she was trying to get up off of the toilet and her ankle caused her pain and she fell back against the commode and struck her back and right side and she has been having pain in those locations as well since that time She did not hit her head or lose consciousness she does not have any neck pain or any neuro symptoms These pains are worse with movements or deep breaths Additionally she has a history of polycystic kidney disease which she follows with Dr. Melton for She has not noticed any hematuria lately but she has had it previously Related Data Home Medications Medication Instructions Recorded Confirmed allopurinol 300 mg PO DAILY 08/04/19 06/29/20 hydralazine 10 mg PO BID 08/04/19 06/29/20 hydrochlorothiazide 12.5 mg PO DAILY 08/04/19 06/29/20 irbesartan 300 mg PO DAILY 08/04/19 06/29/20 aspirin 81 mg PO DAILY 06/01/20 06/29/20 Jynarque 1 ea PO DAILY 06/16/20 06/29/20 escitalopram oxalate 20 mg PO DAILY 06/16/20 06/29/20 Allergies Allergy/AdvReac Type Severity Reaction Status Date / Time quinidine Allergy Severe QUINAGLUTE Verified 04/20/21 09:43 FORTE CAUSED SEVERE RASH meperidine AdvReac Intermediate Dizziness Verified 04/20/21 09:43 Review of Systems Review of Systems: All systems reviewed & are unremarkable except as noted in HPI and below Constitutional: Constitutional: Reports no additional constitutional complaints, Denies chills, Reports fatigue, Denies fever(s), Denies headache(s) and Reports weakness Eyes: Eyes: Reports no additional eye complaints and Denies change in vision ENT: Denies headache(s) and Denies sore throat Cardiovascular: Cardiovascular: Reports chest pain and Denies dyspnea Respiratory: Respiratory: Denies cough and Denies dyspnea Gastrointestinal: Gastrointestinal: Reports abdominal pain, Denies diarrhea and Denies vomiting Genitourinary: Genitourinary: Denies hematuria, Denies urinary frequency, Denies dysuria and Reports flank pain Musculoskeletal: Musculoskeletal: Reports back pain, Reports myalgias, Denies deformity, Denies arthralgias, Denies joint swelling and Denies numbness Integumentary/Breasts: Skin/Breast: Denies rash and Denies wounds Neurologic: Denies headache(s), Denies focal weakness and Denies numbness Psychiatric: Psychiatric: Reports no additional psychiatric complaints Endocrine: Endocrine: Reports no additional endocrine complaints Hematologic/Lymphatic: Hematologic/Lymphatic: Reports no additional hematologic/lymphatic complaints Allergic/Immunologic: Allergic/Immunologic: Reports no additional allergic/immunologic complaints [facility] Past Medical History Medical History History of hypertension History of polycystic kidney disease Surgical History Surgical History History of appendectomy History of cholecystectomy History of hysterectomy History of tonsillectomy Social History Social History Smoking status: Never smoker Alcohol intake: never Substance use: never Substance use type: does not use Spiritual care concerns: No Exam Const: General: cooperative, no acute distress and alert Orientation/consciousness: patient oriented x3 (alert) HENMT: Head: normal to inspection, normocephalic, atraumatic, no contusions and no yesenia
== END 2021-04-20 12:30 | disposition home or self-care (01) ==
PROVIDERS: Emergency Provider Emergency Medicine; PCP Family Medicine
DX: R10.9 Unspecified abdominal pain (principal); S20.229A Contusion of unspecified back wall of thorax, initial encounter; S93.402A Sprain of unspecified ligament of left ankle, initial encounter; Q61.3 Polycystic kidney, unspecified; I10 Essential (primary) hypertension; W19.XXXA Unspecified fall, initial encounter
CPT/HCPCS: 71046; 72110; 73630; 74176; 99284; A9270

== ENCOUNTER 2021-07-04 12:47 | Emergency (ER) | payer MEDICARE, SELFPAY ==
[2021-07-04 12:50] VITALS: BP 102/70; PULSE 58; RESP 16; TEMP 36.2; O2SAT 100
[2021-07-04 13:05] VITALS: BP 102/60; PULSE 56; RESP 13; TEMP 36.6; O2SAT 98
[2021-07-04 13:21] VITALS: BP 99/56; PULSE 60
[2021-07-04 13:23] VITALS: BP 105/71; PULSE 61
--- NOTE | 2021-07-04 13:24 | ED.NAVMDI ---
HPI - Nausea/Vomiting/Diarrhea General Chief complaint: Nausea/Vomiting/Diarrhea Stated complaint: vomiting, diarrhea Time Seen by Provider: 07/04/21 13:17 Source: patient and family Mode of arrival: ambulatory Limitations: no limitations History of Present Illness HPI Narrative: Pt presents with nausea, vomiting and diarrhea for 4 days. Pt denies fever. Pt has some crampy abdominal pain with diarrhea. Pt tried to take a shower to come to ER and had a brief syncopal episode. Pt denies CP or palpitations. Pt did have covid vaccine last week. MD elicited complaint: nausea, vomiting and diarrhea Description of vomiting: bilious Description of diarrhea: watery Associated nausea: Yes Associated abdominal pain: Yes Location of pain: diffuse Pain consistency: intermittent Quality: cramping Exacerbating factors: none Relieving factors: none Associated symptoms: loss of appetite and syncope Related Data Home Medications Medication Instructions Recorded Confirmed allopurinol 300 mg PO DAILY 08/04/19 06/29/20 hydralazine 10 mg PO BID 08/04/19 06/29/20 hydrochlorothiazide 12.5 mg PO DAILY 08/04/19 06/29/20 irbesartan 300 mg PO DAILY 08/04/19 06/29/20 aspirin 81 mg PO DAILY 06/01/20 06/29/20 Jynarque 1 ea PO DAILY 06/16/20 06/29/20 escitalopram oxalate 20 mg PO DAILY 06/16/20 06/29/20 Allergies Allergy/AdvReac Type Severity Reaction Status Date / Time quinidine Allergy Severe QUINAGLUTE Verified 07/04/21 13:06 FORTE CAUSED SEVERE RASH meperidine AdvReac Intermediate Dizziness Verified 07/04/21 13:06 Review of Systems Review of Systems: All systems reviewed & are unremarkable except as noted in HPI and below PMFSH Past Medical History Medical History History of hypertension History of polycystic kidney disease Surgical History Surgical History History of appendectomy History of cholecystectomy History of hysterectomy History of tonsillectomy Social History Social History Smoking status: Never smoker Alcohol intake: never Substance use: never Substance use type: does not use Spiritual care concerns: No Exam Const: General: no acute distress Orientation/consciousness: patient oriented x3 HENMT: Mouth: Yes dry mucous membranes Eyes: Cornea: corneas normal EOM: EOMs intact bilaterally Neck: Neck: normal visual inspection and no lymphadenopathy Resp: Effort & Inspection: normal respiratory effort Auscultation: clear to auscultation bilaterally Cardio: Rate: tachycardic GI: GI Palp: Yes Soft to palpation and Yes Tenderness to palpation present (GI) (mild diffuse tenderness) Auscultation: Hyperactive bowel sounds present Skin: General skin exam: normal color Neuro: General: patient oriented x3, moves all extremities, no meningeal signs, no focal motor deficits and CN's II-XI intact bilaterally Extrem: General: normal to inspection and no clubbing, cyanosis or edema Psych: Appearance: grossly normal Mental Status: mental status grossly normal Thought content: Yes Normal thought content present Course Course Emergency Course: pt feels better and is not nauseated but still has no urge to urinate after 1500 ml of fluids, will give another 1 L bolus. Pt is no longer vomiting but has still not urinated. Do not feel comfortable giving more fluids with her history of CHF. Pt breathing easy no sob, will discharge but told patient if she has not urinated during the night to call her doc or come back Vital Signs Vital signs: Vital Signs Temperature 97.1 F L 07/04/21 12:50 Pulse Rate 58 L 07/04/21 12:50 Respiratory Rate 16 07/04/21 12:50 Blood Pressure 102/70 07/04/21 12:50 Pulse Oximetry 100 07/04/21 12:50 Temperature 97.8 F 07/04/21 13:05 Pulse Rate 52 L 07/04/21 17:36 Respiratory Rate 16
[2021-07-04] MEDS: ONDANSETRON INJ 4 MG/2 ML VIAL IV PUSH (13:38)
[2021-07-04] MEDS: SODIUM CHLORIDE 0.9% IV 1,000 ML 999 ML IV CONT ×2 (13:38→15:48)
[2021-07-04 13:49] LABS: Basophils Percent Auto 0.2 % (0.2-1.2); Hematocrit 42.3 % (37.0-47.0); Hemoglobin 13.8 g/dL (12.0-15.0); Immature Granulocyte Absolute 0.02 K/mm3 (0.00-0.031); Immature Granulocyte Percent A 0.5 % (0-0.5); Lymphocytes Absolute Auto 0.56 K/mm3 (0.9-3.2); Lymphocytes Percent Auto 13.8 % (18.3-44.2); Mean Corpuscular HGB Conc 32.6 g/dl (32-36); Mean Corpuscular Hemoglobin 28.6 pg (26-34); Mean Corpuscular Volume 87.8 fl (80-100); Mean Platelet Volume 11.4 fl (7.4-10.4); Monocytes Absolute Auto 0.4 K/mm3 (0.1-0.6); Monocytes Percent Auto 10.3 % (2.6-8.5); Neutrophils Absolute Auto 3.1 K/mm3 (1.3-6.7); Neutrophils Percent Auto 75.2 % (45.5-73.1); Platelet Count Result 151 k/mm3 (150-375); Red Blood Count 4.82 M/mm3 (4.2-5.4); Red Cell Distribution Width 14.8 % (11.5-14.5); White Blood Count 4.1 K/mm3 (4.5-10.0)
--- NOTE | 2021-07-04 13:51 | ECG_ITS ---
Measurements Intervals [place] Rate: 52 P: 55 RI: 173 QRS: -38 QRSD: 94 T: 39 QT: 430 QTc: 402 Interpretive Statements SINUS BRADYCARDIA MARKED LEFT AXIS DEVIATION [QRS AXIS < -30] POSSIBLE ANTERIOR MYOCARDIAL INFARCTION , PROBABLY OLD [30 ms Q WAVE IN V3/V4, OR R < 0.2 mV IN V4] ABNORMAL ECG COMPARED TO ECG 06/01/2020 16:17:44 NO SIGNIFICANT CHANGES Electronically Signed On 07-04-2021 18:08:04 CDT by Maynor Ochoa M.D.
[2021-07-04 14:01] LABS: Alanine Aminotransferase 16 U/L (4-35); Albumin Level 3.9 g/dL (3.5-5.1); Alkaline Phosphatase 71 U/L (38-126); Anion Gap 11 mmol/L (8-16); Aspartate Amino Transferase 34 U/L (14-36); Bilirubin,Total 0.5 mg/dL (0.2-1.3); Blood Urea Nitrogen 34 mg/dL (7-17); Calcium 8.6 mg/dL (8.4-10.2); Carbon Dioxide 24 mmol/L (22-30); Chloride 103 mmol/L (98-107); Estimated CRCL calculation 19 ml/min; Estimated Glomerular Filt Rate 21; Glucose 110 mg/dL (65-110); Lipase 312 U/L (23-300); Sodium 138 mmol/L (137-145)
[2021-07-04] MEDS: POTASSIUM CHLORIDE 20 MEQ TABLET PO (14:45)
[2021-07-04] MEDS: SODIUM CHLORIDE 0.9% IV 500 ML 999 ML IV CONT (14:45)
[2021-07-04 17:36] VITALS: BP 100/70; PULSE 52; RESP 16; O2SAT 99
== END 2021-07-04 17:39 | disposition home or self-care (01) ==
PROVIDERS: Emergency Provider Emergency Medicine; PCP Family Medicine
DX: K52.9 Noninfective gastroenteritis and colitis, unspecified (principal); Q61.3 Polycystic kidney, unspecified; I50.9 Heart failure, unspecified; I11.0 Hypertensive heart disease with heart failure; R00.1 Bradycardia, unspecified; R94.31 Abnormal electrocardiogram [ECG] [EKG]
CPT/HCPCS: 36415; 80053; 83690; 85025; 93005; 96361; 96374; 99284; A9270; J2405; J7030; J7040

== ENCOUNTER 2021-08-23 00:48 | Day surgery (SDC) | payer MEDICARE, SELFPAY ==
[2021-08-07 14:12] VITALS: BMI 29.0
[2021-08-23 08:45] VITALS: BP 152/73; PULSE 59; RESP 16; TEMP 36.5; O2SAT 100; BMI 29.0
[2021-08-23] MEDS: LACTATED RINGERS 1,000 ML 150 ML IV CONT (09:16)
--- NOTE | 2021-08-23 09:30 | WPDGICN ---
Assessment and Plan Assessment and plan (1) Family history of colon cancer in mother: Code(s): Z80.0 - Family history of malignant neoplasm of digestive organs Status: Acute Assessment and Plan: Patient has a family history of colon cancer in her mother. Plan is for surveillance colonoscopy at least every 5 years. (2) History of colon polyps: Code(s): Z86.010 - Personal history of colonic polyps Status: Acute Assessment and Plan: Patient has had colon polyps in the past. Plan is for surveillance colonoscopy now and consider this at 5 year intervals in the future. Further recommendations will be given after endoscopy. GI Consult Note Consult date/time: 08/23/21 09:30 Reason for consult: Personal history of colon polyps and family history of colon cancer. HPI: Aurora Sanchez is a 70 year old female Presents for screening colonoscopy. Patient's current weight appetite and bowel movements are normal. She denies abdominal pain. She has had no bleeding. Family history is significant that her mother had colon cancer. Patient herself has had colon polyps on previous colonoscopies. She denies any blood in her stools. she she denies abdominal pain. Patient does have a history of a gastric ulcer 1 year ago. Past medical history is significant for chronic kidney disease. [place] to be on the basis polyps cystic kidneys. Review of Systems Review of Systems: Review of systems noncontributory. [facility] Past Medical History Medical History History of hypertension History of polycystic kidney disease Surgical History Surgical History History of appendectomy History of cholecystectomy History of hysterectomy History of tonsillectomy Social History Social History Years smoked: 2 Smoking status: Former smoker Tobacco type: cigarettes Alcohol intake: never Substance use: never Substance use type: does not use Living arrangements: with family Spiritual care concerns: No Meds Home Medications and Allergies Home Medications Medication Instructions Recorded Confirmed Type allopurinol 300 mg tablet 300 mg PO DAILY 08/04/19 08/23/21 History hydralazine 10 mg tablet 10 mg PO BID 08/04/19 08/23/21 History hydrochlorothiazide 25 mg tablet 12.5 mg PO DAILY 08/04/19 08/23/21 History irbesartan 300 mg tablet 300 mg PO DAILY 08/04/19 08/23/21 History aspirin 81 mg chewable tablet 81 mg PO DAILY 06/01/20 08/23/21 History pantoprazole 40 mg tablet,delayed 40 mg PO BID #28 tabs 06/01/20 08/23/21 Rx release escitalopram oxalate 20 mg tablet 20 mg PO DAILY 06/16/20 08/23/21 History tolvaptan (polycys kidney dis) 1 ea PO DAILY 06/16/20 08/23/21 History (Jynarque) cephalexin 500 mg capsule 500 mg PO Q12H 3 days #6 caps 08/18/20 08/23/21 Rx hydrocodone 7.5 mg-acetaminophen 1 tablet PO Q8H PRN pain #15 tabs 04/20/21 08/23/21 Rx 325 mg tablet diphenoxylate-atropine 2.5 1 tablet PO TID PRN diarrhea #10 07/04/21 08/23/21 Rx mg-0.025 mg tablet (Lomotil) tabs prochlorperazine maleate 10 mg 10 mg PO Q8H PRN nausea and 07/04/21 08/23/21 Rx tablet (Compazine) vomiting #14 tabs Allergies Allergy/AdvReac Type Severity Reaction Status Date / Time quinidine Allergy Severe QUINAGLUTE Verified 08/23/21 08:54 FORTE CAUSED SEVERE RASH meperidine AdvReac Intermediate Dizziness Verified 08/23/21 08:54 Vital Signs Vital Signs - 24 hr 08/23/21 08:45 Temperature 97.7 F Pulse Rate 59 L Respiratory Rate 16 Blood Pressure 152/73 H Pulse Oximetry 100 Oxygen Delivery Room Air Exam Narrative: Physical exam reveals patient to be alert. Vital signs stable. HEENT exam is unremarkable. Patient is anicteric. Lungs are clear to auscultation and percussion. Heart is without murmur or extr
--- NOTE | 2021-08-23 09:47 | WPDANESEPPF ---
Anes - Initial Pre Proc Eval Procedure: Operation Date: 08/23/21 10:00 Proposed Procedures p Screening Colonoscopy - Ganga Mcdermott MD Date/Time: 08/23/21 09:47 Surgeon: Gagna Mcdermott MD Pre Op Diagnosis: hx of colon polyps, family hx of colon ca Patient Data Age: 70 Gender: F Height: 1.57 m Weight: 71.9 kg Last Vital Signs Temp 97.7 F 08/23/21 08:45 Pulse 59 L 08/23/21 08:45 Resp 16 08/23/21 08:45 BP 152/73 H 08/23/21 08:45 Pulse Ox 100 08/23/21 08:45 O2 Del Method Room Air 08/23/21 08:45 Allergies Allergy/AdvReac Type Severity Reaction Status Date / Time quinidine Allergy Severe QUINAGLUTE Verified 08/23/21 08:54 FORTE CAUSED SEVERE RASH meperidine AdvReac Intermediate Dizziness Verified 08/23/21 08:54 Home Medications Medication Instructions Recorded Confirmed Type allopurinol 300 mg tablet 300 mg PO DAILY 08/04/19 08/23/21 History hydralazine 10 mg tablet 10 mg PO BID 08/04/19 08/23/21 History hydrochlorothiazide 25 mg tablet 12.5 mg PO DAILY 08/04/19 08/23/21 History irbesartan 300 mg tablet 300 mg PO DAILY 08/04/19 08/23/21 History aspirin 81 mg chewable tablet 81 mg PO DAILY 06/01/20 08/23/21 History pantoprazole 40 mg tablet,delayed 40 mg PO BID #28 tabs 06/01/20 08/23/21 Rx release escitalopram oxalate 20 mg tablet 20 mg PO DAILY 06/16/20 08/23/21 History tolvaptan (polycys kidney dis) 1 ea PO DAILY 06/16/20 08/23/21 History (Jynarque) cephalexin 500 mg capsule 500 mg PO Q12H 3 days #6 caps 08/18/20 08/23/21 Rx hydrocodone 7.5 mg-acetaminophen 1 tablet PO Q8H PRN pain #15 tabs 04/20/21 08/23/21 Rx 325 mg tablet diphenoxylate-atropine 2.5 1 tablet PO TID PRN diarrhea #10 07/04/21 08/23/21 Rx mg-0.025 mg tablet (Lomotil) tabs prochlorperazine maleate 10 mg 10 mg PO Q8H PRN nausea and 07/04/21 08/23/21 Rx tablet (Compazine) vomiting #14 tabs Patient hx anesthesia problems: none Family hx anesthesia problems: none Results Review: All pre-operative results and documents have been reviewed as part of the pre-operative evaluation. [facility] Past Medical History Medical History History of hypertension History of polycystic kidney disease Surgical History Surgical History History of appendectomy History of cholecystectomy History of hysterectomy History of tonsillectomy Social History Social History Years smoked: 2 Smoking status: Former smoker Tobacco type: cigarettes Alcohol intake: never Substance use: never Substance use type: does not use Living arrangements: with family Spiritual care concerns: No Anes - Eval Final PreProcedure Day of Procedure 08/23/21 09:47 Patient weight: obese Heart: regular rate and rhythm Lungs: clear to auscultation Airway: Mallampati scale class II Neurological: alert and oriented Last oral intake: >/= 8 hours ASA classification: III Emergent: no Anesthetic plan: proceed Anesthesia type and monitoring: general GIVS and standard monitoring Results Review: All pre-operative results and documents have been reviewed as part of the pre-operative evaluation. Informed Consent: The patient's anesthetic plan and its attendant risks and benefits were discussed with the patient/family/POA. Questions were solicited and answers provided to the satisfaction of the patient/family/POA.
[2021-08-23 10:25] VITALS: BP 115/62; PULSE 54; RESP 18; O2SAT 97
[2021-08-23 10:35] VITALS: BP 140/75; PULSE 62; RESP 16; O2SAT 100
[2021-08-23 10:45] VITALS: BP 154/81; PULSE 51; RESP 15; O2SAT 100
== END 2021-08-23 10:54 | disposition home or self-care (01) ==
PROVIDERS: PCP Family Medicine; Visit Provider Internal Medicine Gastroenterology
PROC: 0DJD8ZZ Inspection of Lower Intestinal Tract, Via Natural or Artificial Opening Endoscopic (ICD-10-PCS; CPT 45378; principal; 2021-08-23 10:00)
DX: Z12.11 Encounter for screening for malignant neoplasm of colon (principal); K63.5 Polyp of colon; K64.8 Other hemorrhoids; K57.30 Diverticulosis of large intestine without perforation or abscess without bleeding; Z80.0 Family history of malignant neoplasm of digestive organs; Z87.891 Personal history of nicotine dependence; Q61.3 Polycystic kidney, unspecified; Z87.11 Personal history of peptic ulcer disease
CPT/HCPCS: 45385; 88305; J2001; J2704; J7120

== ENCOUNTER 2023-02-04 13:40 | Emergency (ER) | payer MEDICARE, SELFPAY ==
--- NOTE | ~2023-02-04 | XR_ITS ---
Right wrist Technique: PA, oblique, lateral, and ulnar deviation views were obtained. Clinical History: Pain Findings: No acute fracture or dislocation is seen. Osseous alignment is anatomic. Joint spaces are p reserved. Soft tissues are unremarkable. Impression: Unremarkable right wrist radiographs. Reviewed, dictated and finalized at location . OLOGY TECH Impression: Unremarkable right wrist radiographs.
[2023-02-04 13:56] VITALS: BP 134/87; PULSE 80; RESP 16; TEMP 36.8; O2SAT 98
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
== END 2023-02-04 15:30 | disposition home or self-care (01) ==
PROVIDERS: Emergency Provider Emergency Medicine; PCP Family Medicine
DX: S69.91XA Unspecified injury of right wrist, hand and finger(s), initial encounter (principal); I10 Essential (primary) hypertension; E28.2 Polycystic ovarian syndrome; Z90.49 Acquired absence of other specified parts of digestive tract; Z87.891 Personal history of nicotine dependence; Z79.82 Long term (current) use of aspirin; Y04.2XXA Assault by strike against or bumped into by another person, initial encounter
CPT/HCPCS: 73110; 99283

== ENCOUNTER → 2023-02-28 14:50 | Outpatient (CLI) | payer MEDICARE, SELFPAY ==
--- NOTE | ~2023-02-28 | XR_ITS ---
EXAMINATION: XR wrist RT w scaphoid DATE: 02/28/2023 16:14 INDICATION: Unspecified injury of right wrist. TECHNIQUE: 5 views of right wrist were obtained. COMPARISON: Right wrist radiographs 02/04/2023 FINDINGS: There is a transverse fracture of distal radial metaphysis. The distal fracture fragment de monstrates impaction and dorsal angulation. There is 11 degrees dorsal tilt of the distal articular s urface. There is mild osteoarthritis of triscaphe joint and first carpometacarpal joint. IMPRESSION: 1. Transverse fracture of distal radial metaphysis. Reviewed, dictated and finalized at location E. TH CARE / MEDICAL JOB TITLES
== END ==
PROVIDERS: PCP Family Medicine; Visit Provider Family Medicine
DX: S52.591A Other fractures of lower end of right radius, initial encounter for closed fracture (principal); T14.90XA Injury, unspecified, initial encounter
CPT/HCPCS: 73110

== ENCOUNTER 2024-04-14 19:35 | Emergency (ER) | payer MEDICARE, SELFPAY ==
[2024-04-14 19:52] VITALS: BP 128/61; PULSE 62; RESP 14; TEMP 37.2; O2SAT 97
[2024-04-14 21:15] LABS: Influenza A QL RT-PCR Positive (Negative); Influenza B QL RT-PCR Negative (Negative); RSV RNA, RT-PCR Negative (Negative); SARS-CoV-2 RNA PCR Negative (Negative)
[2024-04-14 21:23] VITALS: BP 127/65; PULSE 17; RESP 19; TEMP 36.6; O2SAT 100
--- NOTE | 2024-04-14 21:32 | ED.GENADULT ---
HPI - General Adult General Chief complaint: Upper Respiratory Infection Stated complaint: fever, cough Time Seen by Provider: 04/14/24 21:18 History of Present Illness HPI narrative: Patient is a 73-year-old female who presents emergency department this evening complaining of a cough, body aches, nasal congestion and fever since Saturday. Patient states that she has been taking Tylenol only as needed for the fevers as her utility sales and service manager told her to stay away from ibuprofen and Tylenol due to history of polycystic kidney and liver disease? She is currently denying any chest pain, no additional symptoms or concerns at this time. Related Data Home Medications ?Medication ?Instructions ?Recorded ?Confirmed ?Last Taken ?Type aspirin 81 mg chewable tablet 81 mg PO DAILY 06/01/20 02/18/24 06/28/20 History dicyclomine 10 mg capsule 10 mg PO BID abdominal pain 08/06/23 02/18/24 Unknown History hydralazine 10 mg tablet 10 mg PO BID 02/18/24 02/18/24 Unknown History Allergies Allergy/AdvReac Type Severity Reaction Status Date / Time quinidine Allergy Severe QUINAGLUTE Verified 02/18/24 17:01 FORTE CAUSED SEVERE RASH meperidine AdvReac Intermediate Dizziness Verified 02/18/24 17:01 Review of Systems Review of Systems: All systems are reviewed and are negative unless stated otherwise in the HPI. [facility] Past Medical History Medical History Hyperparathyroidism Major depressive disorder, recurrent, in partial remission Gout, unspecified Hypertensive chronic kidney disease with stage 1 through stage 4 chronic kidney disease, or unspecified chronic kidney disease IBS (irritable bowel syndrome) Tear meniscus knee bilateral Fracture of right distal radius Acute diarrhea CHF with unknown LVEF Polycystic kidney disease Surgical History Surgical History History of tubal ligation 1989 History of arthroscopic knee surgery Left knee. 06/2015 History of ankle surgery History of hysterectomy 1996 History of cholecystectomy 2007 History of appendectomy 1996 History of tonsillectomy 1954 Family History Family History Unknown Hypertension Carcinoma of colon Kidney disorder Father Polycystic kidney disease Lung cancer Parkinson disease Mother Carcinoma of colon Grandparent Cerebrovascular accident Social History Social History Social History: caffeine use Years smoked: 2 Smoking status: Former smoker Tobacco type: cigarettes Alcohol intake: never Substance use: never Substance use type: does not use Do You Feel Safe in your Home?: Yes Lack of Transportation: No Lack of Food: Never True Current Housing: I Have Housing Concerned About Future Housing: No Difficulty Paying Gas/Electric Bills: No Difficulty Paying for Meds: No Currently Unemployed: No Education: Bachelor's Degree Difficulty w/ Childcare or Family Care: No Living arrangements: with family 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 HEENT: PERRL, no rhinorrhea, no post nasal drip, oropharynx clear. Neck: Trachea midline, no JVD, no lymphadenopathy. Cardiovascular: Regular rate and rhythm, no murmurs, rubs or gallops, no peripheral edema. Respiratory: Clear to auscultation bilaterally, no tachypnea, no wheezing, no rhonchi, no rubs, no respiratory distress. Abdomen: Soft, nontender, nondistended, no rebound, no guarding, no peritoneal signs. Musculoskeletal: No joint swelling or deformity, normal muscle tone. Skin: No rashes or petechia, no signs of infection. Psychiatric: Alert and oriented, normal behavior and judgment for situation. Neurological: Alert and oriented to person, place, and time. Follows all commands. No focal deficits, speech is clear and fluent. Course Vital Signs Vital signs: Vital Signs Temperature 99 F 04/14/24 19:52 Pulse Rate 62 04/14/24 19:52 Respiratory Rate 14 04/14/24 19:52 Blood Pressure 128/61 04/14/24 19:52 Pulse Oximetry 97 04/14/24 19:52 Oxygen Delivery Room Air 04/14/24 19:52 Temperature 97.8 F 04/14/24 21:23 Pulse Rate 17 L 04/14/24 21:23 Respiratory Rate 19 04/14/24 21:23 Blood Pressure 127/65 04/14/24 21:23 Pulse Oximetry 100 04/14/24 21:23 Oxygen Delivery Room Air 04/14/24 21:23 Medical Decision Making MDM Narrative Medical decision making narrative: The patient was evaluated by myself in the emergency department. History is obtained from patient who is an independent historian and physical exam was performed. External medical records were reviewed at this time. Viral swabs were obtained and noted to be positive for influenza A. Differential diagnosis considerations include influenza, COVID, pharyngitis. Comorbidities impacting this visit include none. I have evaluated and discussed social determinants of health with the patient that could potentially impact subsequent diagnosis and treatment plans. On repeat assessment of the patient, reevaluation revealed that the patient is doing well and is in no acute distress. Patient symptoms have remained stable since she arrived to our emergency department. Repeat vital signs were all reviewed and noted to be stable. Differential diagnosis and treatment plan were discussed with the patient at bedside. Patient agrees with discussion and after shared medical decision making agrees with discharge. All questions were answered to the patient's satisfaction. Patient will follow up with her PCP in 3-5 days. Patient was provided with strict return precautions and instructed to return to the emergency department if any new or worsening symptoms develop. The patient was discharged in stable condition. Vital Signs Vital Signs: Vital Signs Temperature 99 F 04/14/24 19:52 Pulse Rate 62 04/14/24 19:52 Respiratory Rate 14 04/14/24 19:52 Blood Pressure 128/61 04/14/24 19:52 Pulse Oximetry 97 04/14/24 19:52 Oxygen Delivery Room Air 04/14/24 19:52 Temperature 97.8 F 04/14/24 21:23 Pulse Rate 17 L 04/14/24 21:23 Respiratory Rate 19 04/14/24 21:23 Blood Pressure 127/65 04/14/24 21:23 Pulse Oximetry 100 04/14/24 21:23 Oxygen Delivery Room Air 04/14/24 21:23 Lab Data Labs: Lab Results 04/14/24 Range/Units 20:32 Influenza A (RT-PCR) Positive A (Negative) Influenza B (RT-PCR) Negative (Negative) RSV (RT-PCR) Negative (Negative) SARS-CoV-2 RNA (RT-PCR) Negative (Negative) Discharge Plan Discharge Clinical Impression: Influenza A, Upper respiratory infection Patient Disposition: Home, Self-Care Condition: Improved Instructions: Antibiotic Form, Influenza (ED) Additional Instructions: Please follow-up with your family doctor within the next 3-5 days. Return to the emergency department if any new or worsening symptoms develop. Maintain your oral hydration by drinking lots of fluids. Patient Language: Slovak Prescriptions: No Action dicyclomine 10 mg capsule 10 mg PO BID hydralazine 10 mg tablet 10 mg PO BID cholestyramine-aspartame [Cholestyramine Light] 4 gram powder in packet 4 g PO DAILY Qty: 60 0RF Rx Instructions: administer w/meal; avoid other meds within 1hr before or 4-6hr after dose Wegovy 0.25 mg/0.5 mL pen injector 0.25 mg subcut WEEKLY Qty: 2 0RF Rx Instructions: administer weeks 1 through 4 of therapy aspirin 81 mg Tablet,Chewable 81 mg PO DAILY irbesartan 300 mg tablet 300 mg PO DAILY Qty: 90 3RF hydrochlorothiazide 25 mg tablet See Rx Instructions .ROUTE .COMPLEX Qty: 45 7RF Dose Instruction: TAKE 1/2 OF A TAB BY MOUTH ONCE DAILY Rx Instructions: TAKE 1/2 OF A TAB BY MOUTH ONCE DAILY allopurinol 300 mg tablet 300 mg PO DAILY Qty: 90 1RF escitalopram oxalate 20 mg tablet See Rx Instructions .ROUTE .COMPLEX Qty: 90 1RF Dose Instruction: TAKE 1 TABLET BY MOUTH EVERY DAY Rx Instructions: TAKE 1 TABLET BY MOUTH EVERY DAY potassium chloride 10 mEq tablet extended release See Rx Instructions .ROUTE .COMPLEX Qty: 90 3RF Dose Instruction: TAKE 1 TABLET BY MOUTH 1 TIME EACH DAY. Rx Instructions: TAKE 1 TABLET BY MOUTH 1 TIME EACH DAY. metoprolol succinate 50 mg tablet extended release 24 hr 50 mg PO DAILY Qty: 90 0RF Jynarque 90 mg (AM)/ 30 mg (PM) tablets, sequential See Rx Instructions .ROUTE .COMPLEX Qty: 56 4RF Dose Instruction: Take 90 mg by mouth every morning, and take 30 mg by mouth 8 hours later every day Rx Instructions: Take 90 mg by mouth every morning, and take 30 mg by mouth 8 hours later every day Follow-up/Referrals: Sebastian Albarran MD [Primary Care Provider] - 3 Days Time of Disposition: 21:32
--- OUTSIDE RECORDS SUMMARY | 2024-04-16 20:28 | XMS_ITS | Clinical Summary ---
Author Organization [facility] Address [address] [place] [address]. [place], [place] [address] [place] [id number] Care Team Providers Care E Learning Coordinator Name Role Phone Unavailable Primary Care Provider Unavailabl e Social History Tobacco Use Types Packs/Day Years Used Date Smoking Tobacco: Never Assessed Comments Unknown Sex and Gender Information Value Date Recorded Sex Assigned at Not on file Legal Sex Female 4:26 PM CDT Gender Identity Not on file Sexual Orientation Not on file Plan of Treatment Health Maintenance Due Date Last Done Comments Colorectal Cancer Screening Colonoscopy (10 Years) 1949 Hepatitis C 11/05/1967 DTaP, Tdap and Td Vaccines ( 1 - Tdap) 1968 Mammogram Screening 1989 Zoster Vaccines (1 of 2) 11/05/1999 Dexa Scan (General) 2014 Pneumococcal Vaccine: 65+ Ye ars (1 of 1 - PCV) 2014 COVID-19 Vaccine (2023-2 5 season) 2023 Influenza Adult (#1) 2023 RSV Immunization or 60+ Years (1 - 1-dose 75+ series) 2024 Meningococcal Vaccine Aged Out No juan m negrito eligible based on patient's age to complete this topic RSV Immunizations Under 20 Months Aged Out No longer eligible based on patient's age to complete this topic
--- OUTSIDE RECORDS SUMMARY | 2024-04-16 20:28 | XMS_ITS | Referral Summary ---
Author Organization [facility] Address [address] [facility] [place] [address] Care Team Providers Care Press Assistant Name Role Phone Sebastian Albarran MD Primary Care Provider [phone] Source Comments [facility],non-owned Affiliates and Associated Physician Practices is amultiple site organization consisting of ambulatory clinics and hospital sitesin [place], [place], [place]. This disclosure is being madepursuant to the Care Everywhere program and may not contain all information available regarding this patient. Last updated 17.[facility] Social History Tobacco Use Types Packs/Day Years Used Date Smoking Tobacco: Never Assessed Sex and Gender Information Value Date Recorded Sex Assigned at Not on file Gender Identity Not on file Sexual Orientation Not on file Last Filed Vital Signs Vital Sign Reading Time Taken Comments Blood Pressure 147/88 06/30/2015 11:09 AM CDT Pulse 63 05/31/2015 5:00 AM BUSINESS CONTINUITY PLANNER Temperature 36.4 ??C (97.5 ??F) 05/31/2015 5:00 AM CS T Respiratory Rate 18 05/31/2015 5:00 AM BUSINESS CONTINUITY PLANNER Oxygen Saturation 94% 05/31/2015 5:00 AM BUSINESS CONTINUITY PLANNER Inhaled Oxygen Concentration - - Weight 93 kg (205 lb 0.4 oz) 06/30/2015 11:09 AM CDT Height 157.5 cm (5' 2 ) 05/28/2015 7:47 PM BUSINESS CONTINUITY PLANNER Body Mass Index 37.5 05/28/2015 7:47 PM BUSINESS CONTINUITY PLANNER Plan of Treatment Not on file Care Teams Press Assistant Relationship Specialty Start Date End Date Sebastian Albarran MD [address] [facility] [address] PCP - General 06/30/20
--- OUTSIDE RECORDS SUMMARY | 2024-04-16 20:28 | XMS_ITS | Encounter Summary ---
Author Organization [facility] Address [address] [place] [address] Phone Care Team Providers Care Medical Technologist Generalist Name Role Phone Sebastian Albarran MD Primary Care Provider [phone] Reason for Visit * Reason Comments Med Refill Encounter Details Date Type Department Care Team (Late st Contact Info) Description 06/26/2021 Refill [facility] Nephrology and Hypertension [facility], [address] [address] Elvin Madrigal MD [address] [facility], [address] [facility] [place] [address] Social History Tobacco Use Types Packs/Day Years Used Date Smoking Tobacco: Former Smokeless Tobacco: Never Alcohol Use Standard Drinks/Week Comments No 0 (1 standard drink = 0.6 oz pur e alcohol) AUDIT-C Answer Date Recorded Frequency of Alcohol Consumption Never 09/07/2018 Average Number of Drinks Not on file 019 Frequency of Binge Drinking Not on file 08/23 Sex and Gender Information Value Date Recorded Sex Assigned at Not on file Gender Identity Not on file Sexual Orientation Not on file documented as of this encounter Plan of Treatment Not on file documented as of this encounter Visit Diagnoses Not on filedocumented in this encounter Care Teams Medical Technologist Generalist Relationship Specialty Start Date End Date Sebastian Albarran MD [address] [place] [address] PCP - General Internal Medicine 09/11/18 documented as of this encounter
--- OUTSIDE RECORDS SUMMARY | 2024-04-16 20:28 | XMS_ITS | Encounter Summary ---
Author Organization [facility] Address [address] [place] [address] Phone Care Team Providers Care Vault Attendant Name Role Phone Sebastian Albarran MD Primary Care Provider [phone] Reason for Visit * Reason Onset Date Comments Med Refill 11/15/2020 Encounter Details Date Type Department Care Team (Late st Contact Info) Description 11/15/2020 Refill [facility] Nephrology and Hypertension [address] [facility] [address] [place] [address] Kiki Melton MA Social History Tobacco Use Types Packs/Day Years [...] on filedocumented in this encounter Care Teams Vault Attendant Relationship Specialty Start Date End Date Sebastian Albarran MD [address] [place] [address] PCP - General Internal Medicine 09/11/18 documented as of this encounter
--- OUTSIDE RECORDS SUMMARY | 2024-04-16 20:28 | XMS_ITS | Clinical Summary ---
Author Organization [facility] Address [address] [place] [address] Phone Care Team Providers Care It Infrastructure Engineer Name Role Phone Sebastian Albarran MD Primary Care Provider [phone] Allergies Active Allergy Reactions Criticality Noted Date Comments Meperidine Hcl Quinidine Medications Medication Sig Dispensed Refills Start Date End Date Status aspirin (ASPIR-LOW) 81 MG EC tablet 1 daily 0 12/08/2016 Active allopurinol (ZYLOPRIM) 300 MG tablet 1 daily 0 12/08/2016 Active escitalopram (LEXAPRO) 20 MG tablet 1 daily 0 12/08/2016 Active Cholecalciferol (VITAMIN D3) 2000 units tablet 1 daily 0 01/22/2018 Active pantoprazole (PROTONIX) 40 MG EC tablet Take 40 mg by mouth 1 (one) time each day 06/12/2020 Active hydrALAZINE (APRESOLINE) 10 MG tablet TAKE 3 TABLETS BY MOUTH TWICE A DAY 540 tablet 3 09/29/2020 Active hydroCHLOROthiazide (HYDRODIURIL) 12.5 MG tablet TAKE 1 TABLET BY MOUTH 1 TIME EACH DAY. 90 tablet 3 06/28/2021 Active irbesartan (AVAPRO) 300 MG tablet TAKE 1 TABLET BY MOUTH EVERY DAY IN THE EVENING 90 tablet 3 06/27/2021 Active Loperamide HCl (IMODIUM A-D PO) Take by mouth prn A ctive Active Problems Problem Noted Date Diagnosed Date Chronic kidney disease, Stage IV (severe) 2019 Adult polycystic kidney 12/10/2016 Essential (primary) hypertension 12/10/2016 Dyslipidemia 12/10/2016 Immunizations Name Administration Dates Next Due Influenza TIV (IM) 12/25/2019, 9,12/22/2018(Deferred: Patient Refused) Pneumococcal Conjugate 11/23/2016 Family History Medical History Relation Comments Kidney disease Father Kidney disease Sibling Relation Status Comments Father Sibling Social History Tobacco Use Types Packs/Day Years [...] Sign Reading Time Taken Comments Blood Pressure 122/70 02/22/2022 9:23 AM CONTINUITY EDITOR Pulse 72 02/22/2022 9:23 AM CONTINUITY EDITOR Temperature 35.4 ??C (95.8 ??F) 02/22/2022 9:23 AM CS T Respiratory Rate - - Oxygen Saturation - - Inhaled Oxygen Concentration - - Weight 73.5 kg (162 lb) 02/22/2022 9:23 AM CONTINUITY EDITOR Height 157.5 cm (5' 2 ) 02/22/2022 9:23 AM CONTINUITY EDITOR Body Mass Index 29.63 02/22/2022 9:23 AM CONTINUITY EDITOR Plan of Treatment Health Maintenance Due Date Last Done Comments Pneumococcal PPSV23/PCV13 65 + Years / High and Highest Risk (1 of 4 - PCV) 11/05/1956 Influenza Vaccine (#1) 2023 12/25/2019, 2018 Care Teams It Infrastructure Engineer Relationship Specialty Start Date End Date Sebastian Albarran MD [address] [place] [address] PCP - General Internal Medicine 09/11/18
--- OUTSIDE RECORDS SUMMARY | 2024-04-16 20:28 | XMS_ITS | Continuity of Care Document ---
Author Organization [facility] Address [address] [place] [address] [address] [place] [address] Phone Care Team Providers Care Waiter/Waitress Cabin Class Name Role Phone Rossi Baez Unavailable Unavailable Procedures Procedure Date Office Consultation Advance Directives Directive Yes / No Effective Date File Name No Information Encounters Encounter Description Practice Location Reason(s) For Visit Diagnoses Date Provider Providers Copied on Encounter Office Consultation [facility], [id number] [place] [address] [address], [place], [place], [id number], [place] tel:[phone] [facility] No Information [address] , [address], [place], [address], [place]. tel:[phone] Referring Provider: Sebastian Albarran MD, [address] [place] [address], [address]. tel:[phone] Family History Family Member Type Diagnosis Age At Onset No Information Payers Payer name Insurance type Covered democrat ID Authoriza tion(s) No Information Social History Type Description Quantity Date Captured Comments Sex Female Smoking Status No Information Chief Complaint And Reason For Visit No Information Reason For Referral Reason For Referral No Information History Of Present Illness Encounter Date Complaint History Of Prese nt Illness No Information Functional Status Date Functional Assessmen t No Information Instructions Date Instruction Additional Infor mation No Information Assessments Type Assessment Date No Information Patient Care Teams Name Effective Dates (start - stop) Status Members No Information
--- OUTSIDE RECORDS SUMMARY | 2024-04-16 20:28 | XMS_ITS | Clinical Summary ---
Author Organization [facility] Address [address] [place] [address] Care Team Providers Care Micro Computer Data Processor Name Role Phone Unavailable Primary Care Provider Unavailabl e Social History Tobacco Use Types Packs/Day Years Used Date Smoking Tobacco: Never Assessed Comments Unknown Sex and Gender Information Value Date Recorded Sex Assigned at Not on file Legal Sex Female 2:47 PM POINT OF CARE TECHNICIAN Gender Identity Not on file Sexual Orientation Not on file Plan of Treatment Health Maintenance Due Date Last Done Comments DEXA Bone Density 1950 Hepatitis C Virus (HCV) Screening 1950 Colonoscopy 1994 Colorectal Cancer Screening 1994 Cologuard 11/05/1999 Immunochemical Fecal Occult Blood 11/05/1999 Mammogram 11/05/1999 Zoster Immunization (1 of 2) 11/05/1999 Influenza Immunization (#1) 11/24/202311/2019, 12/30/2018, 12/03/2017 SARS-COV-2 Immunization ( season) 2023 05/19/2020 Respiratory Syncytial Virus (RSV) Immunization (Adult) (1 - 1-dose 75+ series) 2024 DTaP/Tdap/Td Immunization Discontinued 01/30/2014 TdaP Immunization Completed 01/30/2014 Pneumococcal Immunization (5 0+ years) Completed 11/06/2016, 10/10/2015 Hepatitis B Immunization Aged Out No longer eligible based on patient's age to complete this topic Meningococcal Immunization (ACWY) Aged Out No longer eligible based on patient's age to complete this topic Rotavirus Immunization Aged Out No lo nger eligible based on patient's age to complete this topic
--- OUTSIDE RECORDS SUMMARY | 2024-04-16 20:28 | XMS_ITS | Patient Health Summary ---
Author Organization [facility] Address [address] [place] [address] Care Team Providers Care Production Control Planner Name Role Phone Sebastian Albarran MD Primary Care Provider [phone] Note from [facility],non-owned Affiliates and Associated Physician Practices is amultiple site organization consisting of ambulatory clinics and hospital sitesin [place], [place], [place] and [place]. This disclosure is being madepursuant to the Care Everywhere program and may not contain all information available regarding this patient. Last updated 17.[facility] Social History Tobacco Use Types Packs/Day Years Used Date Smoking Tobacco: Never Assessed Sex and Gender Information Value Date Recorded Sex Assigned at Not on file Gender Identity Not on file Sexual Orientation Not on file Last Filed Vital Signs Vital Sign Reading Time Taken Comments Blood Pressure 147/88 06/30/2015 11:09 AM CDT Pulse 63 05/31/2015 5:00 AM ANESTHESIOLOGY CRNA Temperature 36.4 ??C (97.5 ??F) 05/31/2015 5:00 AM CS T Respiratory Rate 18 05/31/2015 5:00 AM ANESTHESIOLOGY CRNA Oxygen Saturation 94% 05/31/2015 5:00 AM ANESTHESIOLOGY CRNA Inhaled Oxygen Concentration - - Weight 93 kg (205 lb 0.4 oz) 06/30/2015 11:09 AM CDT Height 157.5 cm (5' 2 ) 05/28/2015 7:47 PM ANESTHESIOLOGY CRNA Body Mass Index 37.5 05/28/2015 7:47 PM ANESTHESIOLOGY CRNA Procedures * DERMATOPATHOLOGY(Performed 07/25/2022) Performed for Neoplasm of uncertain behavior of skin * CBC W AUTO DIFFERENTIAL(Performed 05/28/2015) * CBC W AUTO DIFFERENTIAL(Performed 05/28/2015) * BASIC METABOLIC PANEL (CALCIUM TOTAL)(Performed 05/28/2015) * PHOSPHORUS BLOOD(Performed 05/28/2015) * MAGNESIUM BLOOD(Performed 05/28/2015) * BASIC METABOLIC PANEL (CALCIUM TOTAL)(Performed 05/27/2015) * CULTURE URINE(Performed 05/27/2015) * SODIUM URINE RANDOM(Performed 05/27/2015) * UREA NITROGEN URINE RANDOM(Performed 05/27/2015) * CREATININE URINE RANDOM(Performed 05/27/2015) * URINALYSIS W/MICROSCOPIC NO CULTURE(Performed 05/27/2015) * BASIC METABOLIC PANEL (CALCIUM TOTAL)(Performed 05/27/2015) * MAGNESIUM BLOOD(Performed 05/27/2015) * BASIC METABOLIC PANEL (CALCIUM TOTAL)(Performed 05/27/2015) * DRUG ABUSE PANEL 10-20+ETHANOL URINE NO CONFIRM(Performed 05/27/2015) * COMPREHENSIVE METABOLIC PANEL(Performed 05/26/2015) * ALCOHOL ETHYL BLOOD(Performed 05/26/2015) * CBC W AUTO DIFFERENTIAL(Performed 05/26/2015) * CBC W AUTO DIFFERENTIAL(Performed 05/26/2015) * EKG 12-LEAD(Performed 05/26/2015) Results * DERMATOPATHOLOGY (07/25/2022 12:00 AM CDT) Case Report Dermatopathology Report ? Case: [id number] ? Authorizing Provider: ??Juanita Sloan MD ?Collected: ? 07/25/2022 12:00 AM ? Ordering Location: ? [facility] ?Received: ?07/26/2022 11:34 AM ? Pathologist: ? An Jimenez MD ? Specimen: ?Skin, left radial palm ? 3 4:02 PM T DERMATOPATHOLOGY LABORATORY Final Diagnosis Specimen A. SKIN, left radial palm: HEMORRHAGE WITHIN THE CORNIFIED LAYER (CHANGES TYPICAL OF BLOOD BLISTER) (R23.3) 3 4:02 PM [facility] Clinical History Angioma 4:02 PM [facility] Gross Description Specimen A: Received is one formalin filled container labeled with the patient's name and designated left radial palm. The specimen consists of a shave biopsy measuring 5x4x1 mm. Jar 0. 3 4:02 PM [facility] Microscopic Description Specimen A. SKIN, left radial palm: Sections show degraded red cells in the cornified layer. 3 4:02 PM [facility] Disclaimer An external and internal positive and negative controls are appropriate for the histochemical, immunohistochemical and immunofluorescence stain(s) in this case (if any), except where stated explicitly. The performance characteristics of the stain(s) cited in this report were developed and its performance characteristic determined by the Dermatopathology Laboratory at [facility], directed by Dr. Karlos Jimenez. These tests need not be, and therefore are not, approved by the [place] Food and Drug Administration. The tests are used for clinical purposes. Billing Codes Specimen Charges Stain Charges 80158 1 3 4:02 PM CDT DERMATOPATHOLOGY LABORATORY Embedded Images 4:02 PM [facility] Pathology/Cytolog y TISSUE SPECIMEN FROM SKIN / Unknown 07/25/2022 07/26/2022 11:34 AM CDT Juanita Sloan MD LAB - PATHOLOGY/CYTO LOGY ORDERABLES Performing Organization Address [facility] de Phone Number DERMATOPATHOLOGY LABORATORY [facility] Department of Dermatology [facility] [address] [facility], 3rd Floor [address] [phone] * CBC W AUTO DIFFERENTIAL (05/28/2015 5:40 AM ANESTHESIOLOGY CRNA) Only the most recent of4 resultswithin the time period is included. Blood specimen (specimen) BLOOD SPECIMEN / Unknown 05/28/2015 5:40 AM ANESTHESIOLOGY CRNA Narrative [facility] - 05/28/2015 7:48 AM ANESTHESIOLOGY CRNA The following orders were created for panel order CBC w Differential. Procedure ? Abnormality ? Status ? --------- ? ------ ? CBC WITH DIFFERENTIAL[[id number]] ? Normal ?Final result ? Please view results for these tests on the individual orders. Andi Vanessa MD LAB - HEMATOLOGY ORD ERABLES Performing Organization Address [facility] de Phone Number [facility] [address] * (ABNORMAL) BASIC METABOLIC PANEL (CALCIUM TOTAL) (05/28/2015 5:40 AM ANESTHESIOLOGY CRNA) Only the most recent of4 resultswithin the time period is included. BUN 22 7 - 26 mg/dL [facility] Creatinine 1.4(H) 0.6 - 1.2 mg/dL [facility] Sodium 144 136 - 145 mmol/L [facility] Potassium 3.3(L) 3.5 - 4.5 mmol/L [facility] Chloride 111(H) 98 - 107 mmol/L [facility] CO2 26 22 - 29 mmol/L [facility] Glucose 90 70 - 115 mg/dL [facility] Calcium 8.4 8.4 - 10.2 mg/dL [facility] Anion Gap 10 8 - 18 [facility] BUN/Creatinine Ratio 16 7 - 23 [facility] Osmolality Calculated 286 270 - 300 mOsm/kg [facility] eGFR 38(L) >60 mL/min/1.7 3 m2 [facility] Blood specimen (specimen) BLOOD SPECIMEN / Unknown 05/28/2015 5:40 AM ANESTHESIOLOGY CRNA 05/28/2015 6:21 AM ANESTHESIOLOGY CRNA Andi Vanessa MD LAB - CHEMISTRY [place] DELCID Performing Organization Address City/[facility]/ZIP Co de Phone Number [address] [phone] * PHOSPHORUS BLOOD (05/28/2015 5:40 AM ANESTHESIOLOGY CRNA) Phosphorus 3.0 2.3 - 4.7 mg/dL [facility] Blood specimen (specimen) BLOOD SPECIMEN / Unknown 05/28/2015 5:40 AM ANESTHESIOLOGY CRNA 05/28/2015 6:21 AM ANESTHESIOLOGY CRNA Andi Vanessa MD LAB - CHEMISTRY [place] [facility] [address] [phone] * MAGNESIUM BLOOD (05/28/2015 5:40 AM ANESTHESIOLOGY CRNA) Only the most recent of2 resultswithin the time period is included. Magnesium 1.6 1.6 - 2.6 mg/dL [facility] Blood specimen (specimen) BLOOD SPECIMEN / Unknown 05/28/2015 5:40 AM ANESTHESIOLOGY CRNA 05/28/2015 6:21 AM ANESTHESIOLOGY CRNA Andi Vanessa MD LAB - CHEMISTRY [place] DELCID Performing Organization Address [facility] Co de Phone Number [address] [phone] * CULTURE URINE (05/27/2015 9:13 PM ANESTHESIOLOGY CRNA) Culture Urine Less than 10,000 CFU/ML of Normal Urogenital/ Skin Anali after 48 Hours [facility] Comment: Urine specimen (specimen) URINE SPECIMEN OBTAINED BY CLEAN CATCH PROCEDURE / Unknown 05/27/2015 9:13 PM ANESTHESIOLOGY CRNA 05/27/2015 9:13 PM ANESTHESIOLOGY CRNA Narrative [facility] - 05/29/2015 2:09 PM ANESTHESIOLOGY CRNA Specimen Type->Urine Tamir Dong MD LAB - MICROBIOLO GY ORDERABLES Performing Organization Address [facility] Phone Number [address] [phone] * SODIUM URINE RANDOM (05/27/2015 10:00 AM ANESTHESIOLOGY CRNA) Sodium Urine 94 Not Established mmol/L [facility] Urine specimen (specimen) (Urine, unspecified source) 05/27/2015 10:00 AM ANESTHESIOLOGY CRNA 05/27/2015 3:56 PM ANESTHESIOLOGY CRNA Tamir Dong MD LAB - URINE CHEM ISTRY ORDERABLES Performing Organization Address [facility] de Phone Number [address] [phone] * UREA NITROGEN URINE RANDOM (05/27/2015 10:00 AM ANESTHESIOLOGY CRNA) Urea Nitrogen Random Urine 560 Not Established mg/dL [facility] Urine specimen (specimen) (Urine, unspecified source) 05/27/2015 10:00 AM ANESTHESIOLOGY CRNA 05/27/2015 3:56 PM ANESTHESIOLOGY CRNA Tamir Dong MD LAB - URINE CHEM ISTRY ORDERABLES Performing Organization Address [facility]/State/ZIP Co de Phone Number [address] [phone] * CREATININE URINE RANDOM (05/27/2015 10:00 AM ANESTHESIOLOGY CRNA) Creatinine Urine 69 Not Established mg/dL [facility] Comment:Result obtained by nan au. Urine specimen (specimen) (Urine, unspecified source) 05/27/2015 10:00 AM ANESTHESIOLOGY CRNA 05/27/2015 3:56 PM ANESTHESIOLOGY CRNA Tamir Dong MD LAB - URINE CHEM ISTRY ORDERABLES Performing Organization Address [facility] [[email or web address]] Co de Phone Number [address] [phone] * (ABNORMAL) URINALYSIS W/MICROSCOPIC NO CULTURE (05/27/2015 9:38 AM ANESTHESIOLOGY CRNA) Color UA Yellow Straw, Yellow, Colorless, Light Yellow [facility] Clarity UA Clear Clear [facility] Specific [place] UA 1.010 1.001 - 1.030 [facility] pH UA 6.5 5.0 - 8.0 [facility] Protein UA Negative <=20 mg/dL [facility] Glucose UA Negative Negative mg/dL [facility] Ketone UA Negative Negative mg/dL [facility] Bilirubin UA Negative Negative mg/dL [facility] Blood UA Trace(A) Negative [facility] Nitrite UA Negative Negative [facility] Leukocyte Esterase Small(A) Negative [facility] Urobilinogen UA <2.0 <2.0 mg/dL [facility] RBC UA 5 0 - 8 /HPF [facility] WBC UA 3(H) 0 - 2 /HPF [facility] Bacteria UA Occasional Rare, Occasional, None /HPF [facility] Squamous Epithelial Cells UA 1 0 - 1 /HPF [facility] Urine specimen (specimen) (Urine, unspecified source) 05/27/2015 9:38 AM ANESTHESIOLOGY CRNA 05/27/2015 9:38 AM ANESTHESIOLOGY CRNA Tamir Dong MD LAB - URINALYSIS ORDERABLES [facility] [address] [phone] * DRUG ABUSE PANEL 10-20+ETHANOL URINE NO CONFIRM (05/27/2015 2:07 AM ANESTHESIOLOGY CRNA) Amphetamines Screen Urine Negative Negative: < 1000 ng/mL [facility] Barbiturates Screen Urine Negative Negative: < 200 ng/mL [facility] Benzodiazepine Screen Urine Negative Negative: < 200 ng/mL [facility] Opiates Urine Negative Negative: < 300 ng/mL [facility] Cocaine Metabolites Urine Negative Negative: < 300 ng/mL [facility] Phencyclidine Screen Urine Negative Negative: < 25 ng/ml [facility] Cannabinoids Screen Urine Negative Negative: <50 ng/mL [facility] Methadone Screen Urine Negative Negative: < 300 ng/mL [facility] Urine specimen (specimen) URINE / Unknown 05/27/2015 2:07 AM ANESTHESIOLOGY CRNA 05/27/2015 2:14 AM ANESTHESIOLOGY CRNA Narrative [facility] - 05/27/2015 2:33 AM ANESTHESIOLOGY CRNA The Urine Toxicology Screening Panel does not screen for Propoxyphene, Meprobamate, Carisoprodol, Trazodone, [id number] medications and/or volatiles (Acetone, Isopropanol, Methanol or Ethylene Glycol). Ethanol, Salicylate, Acetaminophen, Tricyclic Antidepressants and several therapeutic drugs may be individually assayed in serum or plasma specimen. Toxicology testing by the [facility] is an aid to medical diagnosis and treatment of patients. No documented chain of custody was maintained. Results are intended to be used for clinical purposes only. ? Andi Vanessa MD LAB - URINE CHEMISTR Y ORDERABLES Performing Organization Address [facility]/ZIP Co de Phone Number [facility] [address] [place] [address] * (ABNORMAL) COMPREHENSIVE METABOLIC PANEL (05/26/2015 11:15 PM ANESTHESIOLOGY CRNA) BUN 38(H) 7 - 26 mg/dL [facility] Creatinine 1.8(H) 0.6 - 1.2 mg/dL [facility] Sodium 141 136 - 145 mmol/L [facility] Potassium 2.8(LL) 3.5 - 4.5 mmol/L [facility] Comment:Emergency room patie nt - Not deemed critical per policy. Chloride 103 98 - 107 mmol/L [facility] CO2 24 22 - 29 mmol/L [facility] Glucose 118(H) 70 - 115 mg/dL [facility] Calcium 9.1 8.4 - 10.2 mg/dL [facility] Protein Total 6.7 6.0 - 8.3 g/dL [facility] Albumin 3.5 3.4 - 5.0 g/dL [facility] Bilirubin Total 0.5 0.2 - 1.2 mg/dL [facility] Alkaline Phosphatase 92 40 - 150 Units/L [facility] ALT 12 0 - 55 Units/L [facility] AST 15 5 - 34 Units/L [facility] Anion Gap 17 8 - 18 [facility] BUN/Creatinine Ratio 21 7 - 23 [facility] Osmolality Calculated 287 270 - 300 mOsm/kg [facility] Albumin/Globulin Ratio 1.1 1.1 - 2.3 [facility] eGFR 28(L) >60 mL/min/1.7 3 m2 [facility] Blood specimen (specimen) BLOOD SPECIMEN / Unknown 05/26/2015 11:15 PM ANESTHESIOLOGY CRNA 05/26/2015 11:22 PM ANESTHESIOLOGY CRNA Andi Vanessa MD LAB - CHEMISTRY DONAVON DELCID Performing Organization Address [facility]/ZIP Co de Phone Number [address] [phone] * ALCOHOL ETHYL BLOOD (05/26/2015 11:15 PM ANESTHESIOLOGY CRNA) Interpretation Ethanol None Detected None Detected mg/dL [facility] Comment:Ethanol levels less than 10 mg/dL are resulted as None detected . Blood specimen (specimen) BLOOD SPECIMEN / Unknown 05/26/2015 11:15 PM ANESTHESIOLOGY CRNA 05/26/2015 11:22 PM ANESTHESIOLOGY CRNA Andi Vanessa MD LAB - CHEMISTRY DONAVON DELCID Performing Organization Address City/[facility]/ZIP Co de Phone Number [address] [phone] * EKG 12-LEAD (05/26/2015 12:00 AM ANESTHESIOLOGY CRNA) EKG [facility] Comment: Exam Date/Time: ?? May 27 2015 00:04:48 Test Reason : abdominal pain Blood Pressure : / mmHG Vent. Rate : 068 BPM ? Atrial Rate : 068 BPM ?? P-R Int : 206 ms ?QRS Dur : 092 ms ?QT Int : 444 ms ? P-R-T Axes : 052 -22 036 degrees ?? QTc Int : 472 ms Normal sinus rhythm Cannot rule out Inferior infarct , age undetermined Borderline low voltage Abnormal ECG No previous ECGs available Confirmed by FLORINDA MORTON, P ([id number]), food editor GIOVANNA SAUNDERS ([id number]) on 06/01/2015 1:36:28 PM Referred By: REFERRING NO ? Confirmed By:Luis Daniel NEELY MD 05/26/2015 Andi Vanessa MD ECG ORDERABLES [facility] Care Teams Production Control Planner Relationship Specialty Start Date End Date Sebastian Albarran MD [address] [place] [phone] (work) PCP - General 06/30/20
--- OUTSIDE RECORDS SUMMARY | 2024-04-16 20:28 | XMS_ITS | Clinical Summary ---
Author Organization [facility] Address [address] [facility] [place] [address] Care Team Providers Care Director Corporate Compliance Name Role Phone Sebastian Albarran MD Primary Care Provider [phone] Source Comments [facility],non-owned Affiliates and Associated Physician Practices is amultiple site organization consisting of ambulatory clinics and hospital sitesin [place], [place], [place] and [place]. This disclosure is being madepursuant to the Care Everywhere program and may not contain all information available regarding this patient. Last updated 17.[facility] Social History Tobacco Use Types Packs/Day Years Used Date Smoking Tobacco: Never Assessed Sex and Gender Information Value Date Recorded Sex Assigned at Not on file Gender Identity Not on file Sexual Orientation Not on file Last Filed Vital Signs Vital Sign Reading Time Taken Comments Blood Pressure 147/88 06/30/2015 11:09 AM CDT Pulse 63 05/31/2015 5:00 AM DAYTIME CAREGIVER Temperature 36.4 ??C (97.5 ??F) 05/31/2015 5:00 AM CS T Respiratory Rate 18 05/31/2015 5:00 AM DAYTIME CAREGIVER Oxygen Saturation 94% 05/31/2015 5:00 AM DAYTIME CAREGIVER Inhaled Oxygen Concentration - - Weight 93 kg (205 lb 0.4 oz) 06/30/2015 11:09 AM CDT Height 157.5 cm (5' 2 ) 05/28/2015 7:47 PM DAYTIME CAREGIVER Body Mass Index 37.5 05/28/2015 7:47 PM DAYTIME CAREGIVER Plan of Treatment Health Maintenance Due Date Last Done Comments BONE DENSITY TESTING 1950 COLOGUARD (AGES 45-75) - COL ON CA SCREENING 1950 COLON MONITORING 1950 COLONOSCOPY - COLON CA SCREENING 1949 CT COLONOGRAPHY - COLON CA SCREENING 1950 Colorectal Cancer Screening 1950 FIT - COLON CA SCREENING 1950 FLEX SIG - COLON CA SCREENING 1950 LIPID TESTING 1950 MAMMOGRAM 1950 HEPATITIS C SCREENING 10/31/1967 DTAP/TDAP/TD VACCINES (1 - Tdap) 1968 PNEUMOCOCCAL VACCINE 50+ (1 of 1 - PCV) 11/05/1999 ZOSTER VACCINE (1 of 2) 11/05/1999 COVID-19 VACCINE (1 - 2023-2 5 season) 2023 INFLUENZA VACCINE (#1) 2023 DEPRESSION SCREENING 03/25/2024 Respiratory Syncytial Virus (RSV) Vaccine Pt: or over 60 yrs (1 - 1-dose 75+ series) 2024 HEPATITIS B VACCINE Aged Out No longe r eligible based on patient's age to complete this topic HIB VACCINE Aged Out No longer eligi ble based on patient's age to complete this topic HPV VACCINE Aged Out No longer eligi ble based on patient's age to complete this topic MENINGOCOCCAL (Group B) VACCINE Aged Out No longer eligible based on patient's age to complete this topic MENINGOCOCCAL VACCINE Aged Out No juan m negrito eligible based on patient's age to complete this topic Care Teams Director Corporate Compliance Relationship Specialty Start Date End Date Sebastian Albarran MD [address] [place] [address] [place] [address] PCP - General 06/30/20
--- OUTSIDE RECORDS SUMMARY | 2024-04-16 20:37 | XMS_ITS | Continuity of Care Document ---
Author Organization [facility] Address [address] [place] [address] [address] [place] [address] Phone Care Team Providers Care Finished Cloth Checker Name Role Phone Rossi Baez Unavailable Unavailable Procedures Procedure Date Office Consultation Advance Directives Directive Yes / No Effective Date File Name No Information Encounters Encounter Description Practice Location Reason(s) For Visit Diagnoses Date Provider Providers Copied on Encounter Office Consultation [facility], [id number] [place] [address] [address], [place], [place], [id number], [place] tel:[phone] [facility] No Information [address] , [address], [place], [address], [place]. tel:[phone] Referring Provider: Sebastian Albarran MD, [address] [place] [address], [address]. tel:[phone] Family History Family Member Type Diagnosis Age [...]
== END 2024-04-14 22:08 | disposition home or self-care (01) ==
PROVIDERS: Emergency Provider Emergency Medicine; PCP Family Medicine
DX: J10.1 Influenza due to other identified influenza virus with other respiratory manifestations (principal); Z20.822 Contact with and (suspected) exposure to COVID-19; E21.3 Hyperparathyroidism, unspecified; N18.9 Chronic kidney disease, unspecified; I50.9 Heart failure, unspecified; I13.0 Hypertensive heart and chronic kidney disease with heart failure and stage 1 through stage 4 chronic kidney disease, or unspecified chronic kidney disease; K76.9 Liver disease, unspecified; K58.9 Irritable bowel syndrome, unspecified; M10.9 Gout, unspecified; Q61.3 Polycystic kidney, unspecified; Z87.891 Personal history of nicotine dependence; Z90.710 Acquired absence of both cervix and uterus; Z90.49 Acquired absence of other specified parts of digestive tract; Z79.899 Other long term (current) drug therapy; Z79.82 Long term (current) use of aspirin
CPT/HCPCS: 87637; 99283